=== PATIENT | male | born 1955 | race Caucasian/White ===

== ENCOUNTER 2017-05-25 15:01 | Inpatient (IN) | payer OTHER ==
[2017-05-25] VITALS (8 sets, daily range): BP systolic 157–211; BP diastolic 93–127; PULSE 76–96; RESP 18–22; TEMP 98–98.2; O2SAT 93–99
[~2017-05-25] VITALS: Ht 182.9 cm; Wt 100.5 kg
[~2017-05-25 15:01] MED LIST: ALBU6.7H INH; CHOL50006 PO; PRED20 PO; ROSU40 PO; TAMS0.4C4 PO; TRIBTAB3 PO; ULOR40TA PO; ZETI10TA5 PO; ZOLP10TA3 OR
[2017-05-25] MEDS ORDERED: MORPHINE SULFATE 4 MG/ML INJ IV PUSH ONE (15:15)
[2017-05-25] MEDS ORDERED: METOPROLOL TARTRATE 5 MG/5 ML VIAL IVS SCH (15:15)
[2017-05-25] MEDS ORDERED: ASPIRIN 325 MG TAB PO ONE (15:15)
[2017-05-25] MEDS ORDERED: NITROGLYCERIN-DEXTROSE INJ 250 ML IV ONE (15:15)
[2017-05-25] MEDS ORDERED: SODIUM CHLORIDE 0.9% FLUSH 10 ML FLUSH IVF PRN ×2 (15:15→15:30)
[2017-05-25] MEDS ORDERED: ASPIRIN 81 MG CHEW TAB PO STA (15:18)
[2017-05-25] MEDS ORDERED: HEPARIN SODIUM - IV 10,000 UNITS/10 ML VIAL IV STA (15:18)
[2017-05-25] MEDS ORDERED: SODIUM CHLOR 0.9% 1000 ML INJ 1,000 ML IV ONE (15:18)
[2017-05-25] MEDS ORDERED: NITROGLYCERIN-DEXTROSE INJ 250 ML ONE (15:19)
[2017-05-25] MEDS ORDERED: NITROGLYCERIN 0.4 MG SL 25 TABS/BTL SL ONE (15:20)
[2017-05-25] MEDS ORDERED: HEPARIN SODIUM - IV 10,000 UNITS/10 ML VIAL ONE ×2 (15:20→16:12)
[2017-05-25] MEDS ORDERED: ASPIRIN 81 MG CHEW TAB ONE (15:20)
[2017-05-25] MEDS ORDERED: NITROGLYCERIN-DEXTROSE INJ 250 ML IV SCH (15:30)
[2017-05-25 15:32] LABS: BASOPHIL # 0.1 TH/MM3 (0-0.2); BASOPHIL % 1.3 % (0.0-2.0); EOSINOPHIL # 0.3 TH/MM3 (0-0.4); EOSINOPHIL % 2.6 % (0.0-4.0); HEMO FLAGS DIFF FINAL; LYMPH % 21.9 % (9.0-44.0); LYMPHOCYTE # 2.3 TH/MM3 (1.0-4.8); MEAN CORPUSCULAR HEMOGLOBIN 29.5 PG (27.0-34.0); MEAN CORPUSCULAR HGB CONC 33.5 % (32.0-36.0); MONO % 6.6 % (0.0-8.0); NEUT % 67.6 % (16.0-70.0); PLATELET COUNT 217 TH/MM3 (150-450); RED BLOOD COUNT 5.45 MIL/MM3 (4.50-5.90); RED CELL DISTRIBUTION WIDTH 13.9 % (11.6-17.2); WHITE BLOOD COUNT 10.4 TH/MM3 (4.0-11.0)
[2017-05-25 15:33] LABS: CHLORIDE 107 MEQ/L (98-107); POTASSIUM 4.5 MEQ/L (3.5-5.1); SODIUM (NA) 140 MEQ/L (136-145)
--- NOTE | 2017-05-25 15:34 | PD ---
HPI Chief Complaint: STEMI Alert Time Seen by Provider: 15:10 Travel History International Travel<30 days: No Contact w/Intl Traveler<30days: No Traveled to known affect area: No History of Present Illness HPI 62-year-old male arrives with chest heaviness 03/11 which started about 1-1/2 hours prior to ER arrival at rest. Location is generalized chest. The patient reports pain in the left shoulder. He has been fairly inactive yesterday and today however the [facility] having ambulated about [id number] steps which he states is about normal for him. The patient has hyperlipidemia and hypertension. He has managed diabetes with diet and lifestyle modification. He does not smoke. The patient underwent coronary catheterization in 2004 with a 25% LAD ostial stenosis. 2 nitroglycerin tablets taken prior to ER arrival conferred moderate pain relief, the latter less so. Patient's fryline attendant is Dr. Chalino Gordon. [facility] Past Medical History Arthritis: No Asthma: Yes ( A CHILD) Autoimmune Disease: No Heart Rhythm Problems: No Cancer: Yes (TESTICULAR ) Cardiac Catheterization: Yes (09/06) Cardiovascular Problems: Yes High Cholesterol: Yes Chemotherapy: Yes (LAST TX 03/1984) Chest Pain: No Congestive Heart Failure: No COPD: No Cerebrovascular Accident: No Coronary Artery Disease: Yes (25 % BLOCKAGE CAD) Diabetes: Yes Diminished Hearing: No GERD: Yes Headaches: No Hepatitis: No Hiatal Hernia: No Hypertension: Yes Musculoskeletal: No Neurologic: No Respiratory: No Myocardial Infarction: No Seizures: No Sleep Apnea: No Ulcer: No Past Surgical History Abdominal Surgery: Yes (LEFT ABD QUAD LYMPH NODE REMOVED 1982) AICD: No Cardiac Surgery: No Ear Surgery: No Endocrine Surgery: No Eye Surgery: No Genitourinary Surgery: Yes (LEFT TESTICLE REMOVED 1982 DUE CANCER) Gynecologic Surgery: No Oral Surgery: No Pacemaker: No Thoracic Surgery: No Other Surgery: Yes Social History Alcohol Use: Yes (OCCASIONAL ONCE A WEEK) Tobacco Use: Yes (CIGAR ONCE A MONTH) Substance Use: No Allergies-Medications (Allergen,Severity, Reaction): Coded Allergies: No Known Allergies (Verified , 02/13/14) Reported Meds & Prescriptions Reported Meds & Active Scripts Active Proventil Hfa (Albuterol Sulfate) 6.7 Gm Aero 2 Puff INH Q6H PRN * SHAKE WELL BEFORE USE * Deltasone (Prednisone) 20 Mg Tab 40 Mg PO DAILY Reported Tamsulosin HCl 0.4 Mg Cap PO DAILY Tribenzor (Olmesartan Medoxomil-Amlodipin) 1 Tab Tab PO DAILY Zetia (Ezetimibe) 10 Mg Tab 10 Mg PO DAILY Uloric (Febuxostat) 40 Mg Tab 40 Mg PO DAILY Vitamin D (Cholecalciferol) 5,000 Unit Tab 5,000 Unit PO WEEKLY Zolpidem Tartrate 10 Mg Tab 10 Mg OR HSPRN Crestor (Rosuvastatin Calcium) 40 Mg Tab 40 Mg PO DAILY Review of Systems Except as stated in HPI: all other systems reviewed are Neg General / Constitutional: No: Fever, Chills Cardiovascular: Positive: Chest Pain or Discomfort Physical Exam Narrative GENERAL: 62-year-old male well-nourished well-developed moderate distress secondary to pain and/or anxiety SKIN: Minimal diaphoresis. Warm. HEAD: Atraumatic. Normocephalic. EYES: Pupils equal and round. No scleral icterus. No injection or drainage. ENT: No nasal bleeding or discharge. Mucous membranes pink and moist. NECK: Trachea midline. No JVD. CARDIOVASCULAR: Rate approximately 90. Regular. RESPIRATORY: No accessory muscle use. Clear to auscultation. Breath sounds equal bilaterally. GASTROINTESTINAL: Abdomen soft, non-tender, nondistended. Hepatic and splenic margins not palpable. MUSCULOSKELETAL: No obvious deformities. No clubbing. No cyanosis. No edema. NEUROLOGICAL: Awake and alert. No obvious cranial nerve deficits. Motor grossly within normal limits. Normal speech. PSYCHIATRIC: Appropriate mood and affect; insight and judgment normal. Data Data Last Documented VS Vital Signs Date Time Temp Pulse Resp B/P Pulse Ox O2 Delivery O2 Flow Rate FiO2 05/25/17 15:19 99 Nasal Cannula 2 05/25/17 15:10 98.2 92 18 211/127 Vital signs reviewed Orders Electrocardiogram (05/25/17 15:15) Basic Metabolic Panel (Bmp) (05/25/17 15:15) Ckmb (Isoenzyme) Profile (05/25/17 15:15) Complete Blood Count With Diff (05/25/17 15:15) Magnesium (Mg) (05/25/17 15:15) Prothrombin Time / Inr (Pt) (05/25/17 15:15) Act Partial Throm Time (Ptt) (05/25/17 15:15) Troponin I (05/25/17 15:15) Chest, Single Ap (05/25/17 15:15) Ecg Monitoring (05/25/17 15:15) Bilateral Bp Monitoring (05/25/17 15:15) Iv Access Insert/Monitor (05/25/17 15:15) Oximetry (05/25/17 15:15) Oxygen Administration (05/25/17 15:15) Aspirin (Aspirin) (05/25/17 15:15) Morphine Inj (Morphine Inj) (05/25/17 15:15) Nitroglycerin-Dextrose Inj (Nitroglyceri (05/25/17 15:15) Sodium Chloride 0.9% Flush (Ns Flush) (05/25/17 15:15) Metoprolol Tartrate Inj (Lopressor Inj) (05/25/17 15:15) B-Type Natriuretic Peptide (05/25/17 15:18) Sodium Chlor 0.9% 1000 Ml Inj (Ns 1000 M (05/25/17 15:18) Sodium Chloride 0.9% Flush (Ns Flush) (05/25/17 15:30) Aspirin Chew (Aspirin Chew) (05/25/17 15:18) Nitroglycerin-Dextrose Inj (Nitroglyceri (05/25/17 15:30) Heparin Inj (Heparin Inj) (05/25/17 15:18) Nitroglycerin-Dextrose Inj (Nitroglyceri (05/25/17 15:19) Aspirin Chew (Aspirin Chew) (05/25/17 15:20) Heparin Inj (Heparin Inj) (05/25/17 15:20) Nitroglycerin Sl (Nitrostat Sl) (05/25/17 15:20) Admit Order (Ed Use Only) (05/25/17 15:34) Labs Laboratory Tests Test 05/25/17 15:20 White Blood Count 10.4 TH/MM3 Red Blood Count 5.45 MIL/MM3 Hemoglobin 16.1 GM/DL Hematocrit 48.0 % Mean Corpuscular Volume 88.0 FL Mean Corpuscular Hemoglobin 29.5 PG Mean Corpuscular Hemoglobin 33.5 % Concent Red Cell Distribution Width 13.9 % Platelet Count 217 TH/MM3 Mean Platelet Volume 9.4 FL Neutrophils (%) (Auto) 67.6 % Lymphocytes (%) (Auto) 21.9 % Monocytes (%) (Auto) 6.6 % Eosinophils (%) (Auto) 2.6 % Basophils (%) (Auto) 1.3 % Neutrophils # (Auto) 7.0 TH/MM3 Lymphocytes # (Auto) 2.3 TH/MM3 Monocytes # (Auto) 0.7 TH/MM3 Eosinophils # (Auto) 0.3 TH/MM3 Basophils # (Auto) 0.1 TH/MM3 CBC Comment DIFF FINAL Differential Comment Prothrombin Time 10.4 SEC Prothromb Time International 0.9 RATIO Ratio Activated Partial 28.2 SEC Thromboplast Time Sodium Level 140 MEQ/L Potassium Level 4.5 MEQ/L Chloride Level 107 MEQ/L Carbon Dioxide Level 23.6 MEQ/L Anion Gap 9 MEQ/L Blood Urea Nitrogen 26 MG/DL Creatinine 1.40 MG/DL Estimat Glomerular Filtration 52 ML/MIN Rate Random Glucose 161 MG/DL Calcium Level 8.9 MG/DL Magnesium Level 1.6 MG/DL Total Creatine Kinase 185 U/L MDM Medical Decision Making Medical Screen Exam Complete: Yes Emergency Medical Condition: Yes Medical Record Reviewed: Yes Differential Diagnosis NSTEMI, unstable angina, coronary vasospasm, PE, PTX, aortic dissection, pericarditis, myocarditis, endocarditis, PNA, esophageal disease, aneurysm, musculoskeletal etiologies, anxiety, cocaine/sympathomimetic abuse Narrative Course EKG reveals a sinus rhythm with ST elevations in V1 through V4, possible reciprocal change in lead III, rate approximately 93 EKG is concerning for STEMI morphology 1515 pt seen and evaluated 1520 case d/w Dr Gordon and STEMI alert activated 1522 nitro gtt, metoprolol, morphine, and heparin ordered 1533 EMS at bedside 1540 pt reports pain 5/10, nitro transfusing, morphine/asa/heparin/metoprolol given 1547 EMS in ambulance for departure, pain 5/10 general appearance of patient unchanged Critical Care Narrative Aggregate critical care time was 40 minutes. Time to perform other separately billable procedures was not included in the critical care time. My time did not include minutes spent treating any other patients simultaneously or on activities that did not directly contribute to the patient's treatment. The services I provided to this patient were to treat and/or prevent clinically significant deterioration that could result in: Cardiopulmonary arrest, multiorgan injury/ischemia I provided critical care services requiring my management, as noted below: Chart data review, documentation time, medication orders and management, vital sign assessments/reviewing monitor data, ordering and reviewing lab tests, ordering and interpreting/reviewing x-rays and diagnostic studies, care of the patient and discussion of the patient with the admitting physicians. Diagnosis Primary Impression: STEMI (ST elevation myocardial infarction) Qualified Code: I21.3 - ST elevation myocardial infarction (STEMI), unspecified artery Admitting Information Admitting Physician Requests: Admit Gavino Kumar MD May 25, 2017 15:34
[2017-05-25 15:36] LABS: ANION GAP 9 MEQ/L (5-15); BICARBONATE 23.6 MEQ/L (21.0-32.0); MAGNESIUM 1.6 MG/DL (1.5-2.5)
[2017-05-25 15:37] LABS: BLOOD UREA NITROGEN 26 MG/DL (7-18)
[2017-05-25 15:38] LABS: APTT (PATIENT) 28.2 SEC (24.3-30.1); INTERNATIONAL NORMALIZED RATIO 0.9 RATIO; PROTHROMBIN TIME - PATIENT 10.4 SEC (9.8-11.6)
--- NOTE | 2017-05-25 15:38 | RADRPT ---
EXAM DATE/TIME: 05/25/2017 15:17 [place] COMPARISON: CHEST SINGLE AP, February 13, 2014, 10:14. INDICATIONS : Stemi alert. MEDICAL HISTORY : Hypertension. Coronary artery disease. SURGICAL HISTORY : Cardiac catheterization. ENCOUNTER: Initial ACUITY: 1 day PAIN SCORE: 8/10 LOCATION: Left chest FINDINGS: A single view of the chest demonstrates the lungs to be symmetrically aerated without evidence of mas s, infiltrate or effusion. The cardiomediastinal contours are unremarkable. Osseous structures are intact. CONCLUSION: No acute disease. Abhijit Escudero Jr., MD on May 25, 2017 at 15:36 Board Certified Radiologist. This report was verified electronically.
[2017-05-25 15:40] LABS: GLOMERULAR FILTRATION RATE 52 ML/MIN (>89)
[2017-05-25 15:43] LABS: CREATINE KINASE 185 U/L (39-308)
[2017-05-25 15:55] LABS: CKMB 2.8 NG/ML (0.5-3.6)
[2017-05-25] MEDS ORDERED: IOHEXOL 350 MG/ML 100 ML BTL (for Cath Lab) OTHER ONE (16:00)
[2017-05-25] MEDS ORDERED: IOHEXOL 350 MG/ML 50 ML BTL (for Cath Lab) OTHER ONE (16:00)
[2017-05-25] MEDS ORDERED: HEPARIN-NS/PF INJ 500 ML ONE (16:11)
[2017-05-25] MEDS ORDERED: MIDAZOLAM HCL 2 MG/2 ML VIAL ONE (16:12)
[2017-05-25] MEDS ORDERED: NITROGLYCERIN INJ 5 ML ONE (16:12)
[2017-05-25] MEDS ORDERED: TICAGRELOR 90 MG TAB PO ONE (16:59)
--- NOTE | 2017-05-25 17:36 | CATHPROC ---
[facility] HIS Report Study Information Study Number Admission Scheduled Start Study Start [id number] May 25 2017 3:01PM 05/25/2017 May 25 2017 4:07PM [place] Service Cardiac Catheterization Admit Source Facility Department Transfer in from another acute care facility [facility] Physician and Clinical Staff Initial Rodrigue Huffman Conference Planner Naye Lambert,[place] Conference PlannerDorothy Bowers RN Other Alex Taylor RCIS(BS) Recorder Gila Pierre,RT(R) Scrub Greg Moran RT(R) Procedures Performed Procedure Location (Site) Vessel Name Coronary Angiograms LCA Left Coronary Coronary Angiograms RCA Right Coronary Drug Eluting Inflatio LAD Mid Left Coronary L Heart Cath PTCA LAD Mid Left Coronary PTCA ADD ON'S Wire insertion Fem Art (right) Femoral Art Equipment Time Brass Wind Instrument Maker Description Size Mfg Part Number Used/Scraped WIRE, BALANCE MIDDLEWEIGHT [id number] 16:35 [employer] 190CM Used 190CM (KRISHNA) *[id number] TRANSDUCER, TRUWAVE [id number] 16:24 GARCÍA RAMEY * Used W/STOCKCOCK *[id number] 16:42 [employer] BALLOON, 2.0 12MM EMERGE MR 2.0 12MM Used *[id number]- INTRODUCER SET, 16:12 [employer] FR 5 [id number] Used MICROPUNCTURE, STIFFENED *[id number] *[id number] *[id number] 16:24 [employer] PACK, CCL CUSTOM * Used *[id number] BALLOON, 2.25 X 8MM NC [id number] 16:52 [employer] 8MM Used EUPHORA *[id number] STENT, 2.25 12 RESOLUTE [id number] 16:46 [employer]ONIC 2.25 12 Used INTEGRITY RX *[id number] 16:29 [employer]/AVE EBU 3.5 Z2 GUIDE CATHETER FR 6 Used *[id number] 16:30 [employer] MEDICAL 30 BRAYDON INDEFLATOR Used *[id number] 16:24 [employer] MEDICAL SHEATH, FR5.5 PRELUDE 11CM FR 5 [id number] 16:25 [employer] MEDICAL SHEATH, FR6.5 PRELUDE 11CM FR 6.5 [id number] Used *[id number] 16:24 [employer] MEDICAL WIRE, 3MMJ .035 180CM 180CM Used *[id number] 16:24 [employer] MANIFOLD, 4 PORT * Used *[id number] 16:24 [employer] OMNIPAQUE, 350 MG, 150ML 150ML [id number] Used [id number] 16:24 [employer] BL[employer]ET,WARM AIR CCL * Used *[id number] Equipment Model, Serial, Lot Number and Expiration Data Description Model Number Serial Number Lot Number Expiration Date BALLOON, 2.0 12MM EMERGE MR [id number] 10-01-2019 SHEATH, FR6.5 PRELUDE 11CM [id number] 03-01-2020 STENT, 2.25 12 RESOLUTE [id number] 01-19-2019 INTEGRITY RX History: Current Medications Medication Dosage/Unit Route Frequency Last Date/Time Taken STALIN [place] History: Risk Factors Family History of Hypertension Dyslipidemia Previous [place] Previous Heart Failure Premature CAD Yes Yes No Yes No Cerebrovascular Peripheral Artery Chronic Lung On Dialysis Diabetes Diabetes Therapy Disease Disease Disease History: Symptoms/Diagnosis Selection Items Chest pain History: Stress Tests Stress or Imaging Studies Performed No Labs Creatinine (mg/dl) 0.50-1.30 1.4 Medication Medication Total Dose (Bolus/Oral) Medication Total Dosage/Unit 1% XYLOCAINE 20 mL BRILINTA 180 mg FENTANYL 25 mcg HEPARIN 8000 units VERSED 0.5 mg Medications (Bolus/Oral) Medication Time Given Dosage/Unit Administered By Reason FENTANYL 05/25/2017 4:23:03 PM 25 mcg Dorothy Ureña 25 mcg FENTANYL given in lab by Dorothy Ureña, [place] in Right Antecubital via Peripheral IV. VERSED 05/25/2017 4:23:25 PM 0.5 mg Dorothy Ureña 0.5 mg VERSED given in lab by Dorothy Ureña, BASILIA via Peripheral IV. 1% XYLOCAINE 05/25/2017 4:23:34 PM 20 mL Rodrigue Kumar 20 mL 1% XYLOCAINE given in lab by Rodrigue Kumar in Right Groin via Subcutaneous. HEPARIN 05/25/2017 4:36:00 PM 7000 units Dorothy Ureña 7000 units HEPARIN given in lab by Dorothy Ureña, BASILIA via Peripheral IV. HEPARIN 05/25/2017 4:47:00 PM 1000 units Dorothy Ureña 1000 units HEPARIN given in lab by Dorothy Ureña, RN via Peripheral IV. BRILINTA 05/25/2017 4:59:00 PM 180 mg Dorothy Ureña 180 mg BRILINTA given in lab by Dorothy Ureña, RN via Peripheral IV. Ordered by Rodrigue Kumar. Medication (Drip) Medication Time Given Dosage/Unit Concentration/Unit Diluent (ml) Solution IV Solutions 05/25/2017 4:13:25 PM 0 mL (IV) 500 NaCl .9 Patient arrived on IV Solutions in Right Antecubital via Peripheral IV. Pump/Drip Flow = 20 ml/hr usi ng NaCl .9. NITROGLYCERIN DRIP 05/25/2017 4:12:53 PM 20 mcg/min 50 mg 250 D5W Patient arrived on 20 mcg/min NITROGLYCERIN DRIP in Right Wrist via Peripheral IV. Pump/Drip Flow = 6 ml/hr using D5W with a concentration of 50 mg in 250 ml. Initial Case Assessment Cardiovascular HR Rhythm NIBP Chest Pain 76 REG 166/110 2 Edema Present Skin color Skin None Normal Warm Neurological State Oriented to time-place- Alert Moves all extremities person Respiration - General Respiration Rate SpO2 (%) O2 (lpm) (B/min) 14 97 2 Final Case Assessment Cardiovascular HR Rhythm NIBP Chest Pain 76 REG 166/110 2 Edema Present Skin color Skin None Normal Warm Neurological State Oriented to time-place- Alert Moves all extremities person Respiration - General Respiration Rate SpO2 (%) O2 (lpm) (B/min) 14 97 2 Chronological Log Time Study Chronological Log 16::24 Patient arrived via evac 16:07:31 Patient Name, D.O.B, / Armband Verified By R.N. 16:07:32 Consent signed by the physician and the patient and verified by the [facility] staff. 16:07:32 Pre-op and post- op instructions given; patient acknowledges understanding of instruction s. 16:07:33 Verbal Stimulation=2 Physical Stimulation=2 Airway=2 Respiration=2 TOTAL=8. (0=absent, 1= limited, 2=present) 16:07:35 Patient has been NPO for More than 6Hrs. Vitals capture started with the following parameters, Patient=Adult, Interval=5 min, Initial Jvquakcr=348 mmHg, 16:09:54 Deflation Rate=5 mmHg 16:10:36 MD arrived. 16:11:15 HR=77 bpm, QBIW=765/110 mmhg, SpO2=99.0 %, Resp=14 B/min, Pain=2, Romeo=10, Dominguez=2 Skin Breakdown-NONE 16:12:34 16:12:42 A # 20 IV was noted in the Wrist (right). Grade = 0 Patient arrived on 20 mcg/min NITROGLYCERIN DRIP in Right Wrist via Peripheral IV. Pump/Drip Fl ow = 6 ml/hr using 16:12:53 D5W with a concentration of 50 mg in 250 ml. 16:13:17 A # 20 IV was noted in the Antecubital (right). Grade = 0 16:13:25 Patient arrived on IV Solutions in Right Antecubital via Peripheral IV. Pump/Drip Flow = 20 ml/hr using NaCl .9. 16:13:59 History and physical on the chart or being dictated. Assessment: Initial Case, HR=76 BPM, Rhythm=REG, RKVZ=734/110 mmhg, Chest Pain=2, Edema=None, Color=Normal, Skin = Warm 16:14:00 Neurological: State=Alert, Ox3, ECKERT Respiration: Resp=14 B/min, SpO2=97 %, O2=2 lpm 16:14:28 Bilateral groins prepped with 2% chlorhexidine, and with a 3 min. waiting time. 16:14:32 Reference ECG taken 16:15:35 HR=75 bpm, BGXW=765/105 mmhg, SpO2=98.0 %, Resp=16 B/min, Pain=2, Romeo=10, Dominguez=2 16:20:38 HR=82 bpm, XTAD=247/111 mmhg, SpO2=98.0 %, Resp=23 B/min, Pain=2, Romeo=10, Dominguez=2 16:21:08 Pressure channel 1 zeroed. Time Out. Correct patient, correct procedure,correct physician, ,power injectorloaded or not lo aded with contrast with 16:21:59 surgical team present. Time Out Concurred by MD, individual staff and TRAIN PLANNER in procedure 16:22:27 Case Start 16:22:30 PT RECEIVED 5000 HEPARIN IN ER 16:22:54 Verbal Stimulation=2 Physical Stimulation=2 Airway=2 Respiration=2 TOTAL=8. (0=absent, 1=li mited, 2=present) 16:23:03 25 mcg FENTANYL given in lab by Dorothy Ureña, RN in Right Antecubital via Peripheral IV. 16:23:25 0.5 mg VERSED given in lab by Dorothy Ureña, RN via Peripheral IV. 16:23:34 20 mL 1% XYLOCAINE given in lab by Rodrigue Kumar in Right Groin via Subcutaneous. 16:24:08 Access site was Right Femoral Artery. 16:24:13 A wire was inserted via Fem Art (right). 16:24:15 A SHEATH, FR6.5 PRELUDE 11CM FR 6.5 was advanced into the Fem Art (right) using the Percuta neous technique. 16:26:24 HR=80 bpm, TZNJ=209/119 mmhg, SpO2=96.0 %, Resp=14 B/min, Pain=2, Romeo=10, Dominguez=2 Recorded Pressure: Ao, HR=78, Condition=Condition 1 16:26:44 (Aorta) Ao 176/98/128 16:27:28 An injection in the Fem Art (right) was made through the SHEATH, FR6.5 PRELUDE 11CM FR 6.5. A JR 4.0 INFINITI CATHETER FR 6 was advanced over a wire. OMNIPAQUE, 350 MG, 150ML 150ML was us ed for 16:27:37 injections. Recorded Pressure: LV, HR=80, Condition=Condition 1 16:28:14 (Left Ventricle) LV 173/3/13 Recorded Pressure: LV, Ao, HR=77, Condition=Condition 1 16:28:26 (Left Ventricle) LV 171/2/13, (Aorta) Ao 160/99/127 16:29:18 The RCA was injected and visualized at various angles. OMNIPAQUE, 350 MG, 150ML 150ML used . 16:30:17 OMNIPAQUE, 350 MG, 150ML 150ML and 30 BRAYDON INDEFLATOR added. 16:30:38 HR=80 bpm, BUAA=845/114 mmhg, SpO2=98.0 %, Resp=13 B/min, Pain=2, Romeo=10, Dominguez=2 16:31:35 Catheter was removed Recorded Pressure: Ao, HR=81, Condition=Condition 1 16:31:49 (Aorta) Ao 166/102/130 A EBU 3.5 Z2 GUIDE CATHETER FR 6 was advanced over a wire. OMNIPAQUE, 350 MG, 150ML 150ML was u sed for 16:32:02 injections. 16:33:51 The LCA was injected and visualized at various angles. OMNIPAQUE, 350 MG, 150ML 150ML used . 16:35:37 HR=81 bpm, AJGD=486/111 mmhg, SpO2=98.0 %, Resp=19 B/min, Pain=2, Romeo=10, Dominguez=2 16:36:00 7000 units HEPARIN given in lab by Dorothy Ureña, RN via Peripheral IV. 16:36:49 A WIRE, BALANCE MIDDLEWEIGHT 190CM (KRISHNA) 190CM was inserted via Fem Art (right). 16:40:39 HR=76 bpm, ZWGJ=488/102 mmhg, SpO2=99.0 %, Resp=23 B/min, Pain=2, Romeo=10, Dominguez=2 A BALLOON, 2.0 12MM EMERGE MR 2.0 12MM was inserted over WIRE, BALANCE MIDDLEWEIGHT 190CM (KRISHNA ) 16:42:54 190CM via the LAD Mid. A BALLOON, 2.0 12MM EMERGE MR 2.0 12MM over a WIRE, BALANCE MIDDLEWEIGHT 190CM (KRISHNA) 190CM in the 16:43:22 LAD Mid was inflated using a 30 BRAYDON INDEFLATOR at 8 braydon for 25 sec. 16:43:49 Activated Clotting Time Drawn A BALLOON, 2.0 12MM EMERGE MR 2.0 12MM over a WIRE, BALANCE MIDDLEWEIGHT 190CM (KRISHNA) 190CM in the 16:43:56 LAD Mid was inflated using a 30 BRAYDON INDEFLATOR at 8 braydon for 16 sec. 16:44:58 Balloon Removed. 16:45:38 HR=76 bpm, CWKP=448/105 mmhg, SpO2=99.0 %, Resp=22 B/min, Pain=2, Romeo=10, Dominguez=2 A STENT, 2.25 12 RESOLUTE INTEGRITY RX 2.25 12 was advanced through a EBU 3.5 Z2 GUIDE CATHETER FR 6 over 16:46:21 a WIRE, BALANCE MIDDLEWEIGHT 190CM (KRISHNA) 190CM. 16:47:00 1000 units HEPARIN given in lab by Dorothy Ureña RN via Peripheral IV. 16:47:28 ACT (Normal Range 90-180) = 277 A STENT, 2.25 12 RESOLUTE INTEGRITY RX 2.25 12 was deployed using a 30 BRAYDON INDEFLATOR at 10 bryadon ospheres 16:48:50 for 30 seconds in the LAD Mid. 16:50:22 Delivery device removed 16:50:39 HR=77 bpm, ZBRB=796/106 mmhg, SpO2=98.0 %, Resp=24 B/min, Pain=2, Romeo=10, Dominguez=2 16:51:00 The LCA was injected and visualized at various angles. OMNIPAQUE, 350 MG, 150ML 150ML used . A BALLOON, 2.25 X 8MM NC EUPHORA 8MM was inserted over WIRE, BALANCE MIDDLEWEIGHT 190CM (KRISHNA) 190CM 16:53:20 via the LAD Mid. A BALLOON, 2.25 X 8MM NC EUPHORA 8MM over a WIRE, BALANCE MIDDLEWEIGHT 190CM (KRISHNA) 190CM in th e LAD 16:53:38 Mid was inflated using a 30 BRAYDON INDEFLATOR at 20 braydon for 29 sec. 16:55:38 HR=74 bpm, EJKQ=274/104 mmhg, SpO2=99.0 %, Resp=17 B/min, Pain=2, Romeo=10, Dominguez=2 16:56:02 Balloon Removed. 16:56:50 The LCA was injected and visualized at various angles. OMNIPAQUE, 350 MG, 150ML 150ML used . 16:59:00 180 mg BRILINTA given in lab by Dorothy Ureña, RN via Peripheral IV. Ordered by Rodrigue Kumar. 16:59:15 The LCA was injected and visualized at various angles. OMNIPAQUE, 350 MG, 150ML 150ML used . 17:01:24 HR=74 bpm, RUFE=471/109 mmhg, SpO2=99.0 %, Resp=11 B/min, Pain=2, Romeo=10, Dominguez=2 17:02:00 Case End 17:05:42 HR=76 bpm, GMVN=153/97 mmhg, SpO2=98.0 %, Resp=16 B/min, Pain=2, Romeo=10, Dominguez=2 Assessment: Final Case, HR=76 BPM, Rhythm=REG, NNUC=692/110 mmhg, Chest Pain=2, Edema=None, Color=Normal, Skin = Warm 17:05:42 Neurological: State=Alert, Ox3, ECKERT Respiration: Resp=14 B/min, SpO2=97 %, O2=2 lpm 17:05:53 In the Fem Art (right) the SHEATH, FR6.5 PRELUDE 11CM FR 6.[address] by Rodrigue Allison. 17:06:02 Sterile dressing applied to site 17:06:03 No case complications noted. 17:06:04 Cine recording checked. 17:06:09 Bedside Report will be given. 17:06:09 Implantable Device card placed in patient's chart. 17:06:11 Contrast Scanned 17:06:13 A Left Heart Cath was performed. 17:06:14 Patient moved to stretcher 17:10:41 HR=76 bpm, LMXM=393/108 mmhg, Resp=25 B/min, Pain=2, Romeo=10, Dominguez=2 17:15:24 Vitals capture stopped. End Study - Contrast Media Used In Study Contrast Total Opened (mL) Total Used (mL) Total Wasted (mL) Omnipaque 105 105 0 End Study - Maximum Contrast Load Max Contrast Load (mL) 374.7 End Study - Radiation Exposure Fluoro Time (minutes) 6.8 End Study - Patient Disposition Complications Transferred To Interventional Outcome No Regular Bed successful
[2017-05-25] MEDS ORDERED: MORPHINE SULFATE 4 MG/ML INJ IV PUSH PRN (18:45)
[2017-05-25] MEDS ORDERED: ACETAMINOPHEN 325 MG TAB PO PRN (18:45)
[2017-05-25] MEDS ORDERED: ATROPINE SULFATE 1 MG/ML VIAL IV PRN (18:45)
[2017-05-25] MEDS ORDERED: ONDANSETRON HCL 4 MG/2 ML VIAL IV PRN (18:45)
[2017-05-25] MEDS ORDERED: ALBUTEROL SULFATE 90 MCG/ACT HFA 8 GM INHALER INH PRN (18:45)
[2017-05-25] MEDS ORDERED: oxyCODONE/ACETAMINOPHEN 10 MG/325 MG TAB PO PRN (18:45)
[2017-05-25] MEDS ORDERED: oxyCODONE/ACETAMINOPHEN 5 MG/325 MG TAB PO PRN (18:45)
[2017-05-25] MEDS ORDERED: MISC INFORMATION XX ONE (18:45)
[2017-05-25] MEDS ORDERED: SODIUM CHLOR 0.9% 250 ML INJ 250 ML IV PRN (18:45)
[2017-05-25] MEDS ORDERED: hydrALAZINE HCL 20 MG/ML VIAL IV PUSH ONE (19:15)
[2017-05-25] MEDS: TICAGRELOR 90 MG TAB PO SCH (20:59)
[2017-05-25] MEDS: METOPROLOL TARTRATE 25 MG TAB PO SCH (20:59)
[2017-05-25] MEDS: ATORVASTATIN 40 MG TAB PO SCH (20:59)
--- NOTE | 2017-05-25 21:12 | MH ---
cc: RODRIGUE HARTMAN DO DATE OF ADMISSION 05/25/2017 REASON FOR ADMISSION Acute ST elevation myocardial infarction. HISTORY OF PRESENT ILLNESS Otf Roberts is a pleasant 62-year-old male who arrived to [facility] Emergency Room in [place] on May 25, 2017 due to chest pain. He states that the chest pain started about an hour to an hour and a half prior to arriving to the ER. Chest pain was in the center of the chest and radiated to his left shoulder. He has been fairly inactive over the past few days but before that was in [place] and walked around all day without problem. Upon arrival the patient had an EKG done which showed extensive ST elevations in the anterior leads. The patient was quite hypertensive and he was given two nitro sublingual tablets, started on a nitro sublingual drip and given heparin. The patient sees my partner, Dr. Chalino Gordon and so we were called and a STEMI alert was called. PAST MEDICAL HISTORY 1. Coronary artery disease. 2. Asthma as a child. 3. Testicular cancer. 4. Hyperlipidemia. 5. Hypertension. 6. Diabetes mellitus for which the patient attempts to control without medications. 7. Gastroesophageal reflux disease. PAST SURGICAL HISTORY 1. Cardiac catheterization (2004) where he was found to have a 25% lesion in proximal LAD, otherwise no significant disease. 2. Left abdominal surgery for lymph node removal (1982). 3. Left testicle removed (1982 due to cancer). ALLERGIES NO KNOWN DRUG ALLERGIES. MEDICATIONS 1. Flomax 0.4 mg daily. 2. Tribenzor one tablet daily. 3. Zetia 10 milligrams daily. 4. Uloric 40 milligrams daily. 5. Vitamin D 5000 units weekly. 6. Ambien 10 mg as needed for sleep. 7. Crestor 40 mg daily. FAMILY HISTORY Denies premature coronary artery disease or sudden cardiac within the family. SOCIAL HISTORY The patient drinks rarely. He continues to smoke a cigar every 2-4 weeks. Denies drug abuse. REVIEW OF SYSTEMS 14-systems were reviewed including osteopathic, pertinent positives and negatives as above, otherwise negative. PHYSICAL EXAMINATION VITAL SIGNS: Temperature 98.2, heart rate 92, blood pressure 211/127, respirations 18, pulse ox 96% on room air. GENERAL: In general the patient appears in mild distress, alert awake and oriented x3. HEENT: Extraocular muscles intact. Mucous membranes moist. NECK: Supple. No JVD at 45 degrees. No carotid bruits heard bilaterally. Carotid upstroke is brisk in nature. CARDIOVASCULAR: Heart is regular rate and rhythm. Positive first and second heart sounds with no noted murmurs, gallops or rubs. PMI is nondisplaced. LUNGS: Clear to auscultation bilaterally. No wheezes, rales or rhonchi. ABDOMEN: Soft, nontender, nondistended. No organomegaly noted. EXTREMITIES: Show no clubbing, cyanosis or edema. Femoral and distal pulses intact bilaterally. NEUROLOGIC: No focal deficits. SKIN: Warm, dry and intact. OSTEOPATHIC: No kyphoscoliosis, lordosis or paraspinal tender points. LABORATORY FINDINGS Hemoglobin 16.1, hematocrit 48.0, platelets 217. Potassium 4.5, BUN 26, creatinine 1.4. Electrocardiogram (May 25, 2017 at 15:07) sinus rhythm, left anterior fascicular block, extensive ST changes anterior septally concerning for an acute ST elevation myocardial infarction. IMPRESSION 1. Acute anterior septal ST-elevation myocardial infarction. 2. History of coronary artery disease by cardiac catheterization. 3. Accelerated hypertension. 4. History of hypertension. 5. History of hyperlipidemia. 6. History of diabetes mellitus for which he tries to control with his diet. 7. Tobacco abuse. RECOMMENDATIONS 1. Mr. Roberts is presenting with chest pain concerning for coronary insufficiency and an EKG which is concerning for an ST-elevation myocardial infarction. Because of this he will be transferred from [place] to [facility] for cardiac catheterization emergently. 2. Risks, benefits and alternatives were explained to him and he consents as such. 3. We will check a 2-D echo to look at his overall left ventricular function, cardiac structure and possible valvopathies. 4. I spoke to him for greater than 3 minutes about tobacco cessation. 5. As far as his diabetes goes, his blood sugar on arrival was high although this might be in acute reactant due to his overall illness. 6. Further recommendations will be made after coronary visualization. Thank you for allowing me to see Otf Roberts. If there are any questions please do not hesitate to call. Rodrigue Hartman DO VGP/KK /6:38 PM /8:58 PM
[2017-05-25] MEDS: hydrALAZINE HCL 20 MG/ML VIAL IV PUSH PRN (22:00)
[2017-05-26] VITALS (25 sets, daily range): BP systolic 155–174; BP diastolic 92–105; PULSE 77–92; RESP 14–20; TEMP 97.5–98.3; O2SAT 95–98
[2017-05-26 07:02] LABS: AUTOMATED NEUTROPHIL # 6.4 TH/MM3 (1.8-7.7); BASOPHIL # 0.1 TH/MM3 (0-0.2); BASOPHIL % 0.6 % (0.0-2.0); EOSINOPHIL # 0.3 TH/MM3 (0-0.4); EOSINOPHIL % 3.3 % (0.0-4.0); HEMATOCRIT 44.5 % (39.0-51.0); HEMO FLAGS DIFF FINAL; LYMPH % 25.1 % (9.0-44.0); LYMPHOCYTE # 2.6 TH/MM3 (1.0-4.8); MEAN CELL VOLUME 88.6 FL (80.0-100.0); MONO % 8.2 % (0.0-8.0); NEUT % 62.8 % (16.0-70.0); PLATELET COUNT 185 TH/MM3 (150-450); RED BLOOD COUNT 5.02 MIL/MM3 (4.50-5.90); RED CELL DISTRIBUTION WIDTH 15.1 % (11.6-17.2); WHITE BLOOD COUNT 10.2 TH/MM3 (4.0-11.0)
--- NOTE | 2017-05-26 07:17 | PD.CONS ---
History of Present Illness Service Hospitalist Consult Requested By Cardiology Dr. Gordon Primary Care Physician No Primary Care Physician Diagnoses: History of Present Illness This is a 62-year-old male with a medical history significant for hypertension, hyperlipidemia, and diabetes who presented to [place] with a chief complaint of chest pain. The patient's cardiac history significant for heart catheterization in 2004 which showed 25% stenosis of the LAD. The patient's sharepoint manager is Dr. Gordon. EKG in ER significant for ST elevations in V1 through V4. This STEMI alert was called. The patient was transferred to [facility] for urgent cardiac catheterization. Currently the patient is laying flat in bed. He denies CP, SOB, or abdominal pain. No other complaints or concerns this am. Review of Systems Constitutional: DENIES: Fever Respiratory: DENIES: Shortness of breath Cardiovascular: DENIES: Chest pain, Palpitations Gastrointestinal: DENIES: Abdominal pain, Nausea Psychiatric: DENIES: Mood changes Past Family Social History Allergies: Coded Allergies: No Known Allergies (Verified , 02/13/14) Past Medical History Hypertension Hyperlipidemia Diabetes Coronary artery disease BPH Gout hx Testicular CA 88 Past Surgical History Deviated septum repair Active Ordered Medications Tamsulosin HCl 0.4 Mg Cap PO DAILY Tribenzor (Olmesartan Medoxomil-Amlodipin) 1 Tab Tab PO DAILY Zetia (Ezetimibe) 10 Mg Tab 10 Mg PO DAILY Uloric (Febuxostat) 40 Mg Tab 40 Mg PO DAILY Vitamin D (Cholecalciferol) 5,000 Unit Tab 5,000 Unit PO WEEKLY Zolpidem Tartrate 10 Mg Tab 10 Mg OR HSPRN Crestor (Rosuvastatin Calcium) 40 Mg Tab 40 Mg PO DAILY Family History father from bone/lung CA mother with DM, HTN, HLD, living Social History alcohol socially denies ilicit drugs hx tobacco use over 30 years ago Physical Exam Vital Signs Vital Signs Date Time Temp Pulse Resp B/P Pulse Ox O2 Delivery O2 Flow Rate FiO2 05/26/17 06:00 80 05/26/17 05:00 78 05/26/17 04:00 80 05/26/17 03:00 98.0 82 20 162/92 97 05/26/17 03:00 84 05/26/17 02:00 88 05/26/17 01:00 84 05/26/17 00:00 92 05/25/17 23:15 18 05/25/17 23:00 98.2 94 18 157/93 97 05/25/17 23:00 96 05/25/17 22:00 86 05/25/17 21:00 84 05/25/17 20:00 86 05/25/17 19:00 86 05/25/17 19:00 98.0 76 22 171/115 97 05/25/17 15:28 88 18 206/115 99 Nasal Cannula 2 05/25/17 15:19 99 Nasal Cannula 2 05/25/17 15:15 90 18 205/125 98 Nasal Cannula 2 05/25/17 15:15 93 Nasal Cannula 05/25/17 15:10 98.2 92 18 211/127 96 05/25/17 15:02 92 96 Room Air Physical Exam GENERAL: This is a well-nourished, well-developed patient, in no apparent distress. SKIN: No rashes, ecchymoses or lesions. Cool and dry. HEAD: Atraumatic. Normocephalic. No temporal or scalp tenderness. EYES: Pupils equal round and reactive. Extraocular motions intact. No scleral icterus. No injection or drainage. ENT: Nose without bleeding, purulent drainage or septal hematoma. Throat without erythema, tonsillar hypertrophy or exudate. Uvula midline. Airway patent. NECK: Trachea midline. No JVD or lymphadenopathy. Supple, nontender, no meningeal signs. CARDIOVASCULAR: Regular rate and rhythm without murmurs, gallops, or rubs. RESPIRATORY: Clear to auscultation. Breath sounds equal bilaterally. No wheezes , rales, or rhonchi. GASTROINTESTINAL: Abdomen soft, non-tender, nondistended. No hepato-splenomegaly , or palpable masses. No guarding. MUSCULOSKELETAL: Extremities without clubbing, cyanosis, or edema. No joint tenderness, effusion, or edema noted. No calf tenderness. NEUROLOGICAL: Awake and alert. Cranial nerves II through XII intact. Motor and sensory grossly within normal limits. Five out of 5 muscle strength in all muscle groups. Normal speech. Laboratory Laboratory Tests Test 05/25/17 05/26/17 15:20 05:50 White Blood Count 10.4 10.2 Red Blood Count 5.45 5.02 Hemoglobin 16.1 15.6 Hematocrit 48.0 44.5 Mean Corpuscular Volume 88.0 88.6 Mean Corpuscular Hemoglobin 29.5 31.0 Mean Corpuscular Hemoglobin 33.5 35.0 Concent Red Cell Distribution Width 13.9 15.1 Platelet Count 217 185 Mean Platelet Volume 9.4 9.6 Neutrophils (%) (Auto) 67.6 62.8 Lymphocytes (%) (Auto) 21.9 25.1 Monocytes (%) (Auto) 6.6 8.2 Eosinophils (%) (Auto) 2.6 3.3 Basophils (%) (Auto) 1.3 0.6 Neutrophils # (Auto) 7.0 6.4 Lymphocytes # (Auto) 2.3 2.6 Monocytes # (Auto) 0.7 0.8 Eosinophils # (Auto) 0.3 0.3 Basophils # (Auto) 0.1 0.1 CBC Comment DIFF FINAL DIFF FINAL Differential Comment Prothrombin Time 10.4 Prothromb Time International 0.9 Ratio Activated Partial 28.2 Thromboplast Time Sodium Level 140 Potassium Level 4.5 Chloride Level 107 Carbon Dioxide Level 23.6 Anion Gap 9 Blood Urea Nitrogen 26 Creatinine 1.40 Estimat Glomerular Filtration 52 Rate Random Glucose 161 Calcium Level 8.9 Magnesium Level 1.6 Total Creatine Kinase 185 Creatine Kinase MB 2.8 Troponin I 0.02 B-Type Natriuretic Peptide 58 Result Diagram: 05/26/17 0550 05/25/17 1520 Imaging Last Impressions Chest X-Ray 05/25/17 1515 Signed Impressions: Service Date/Time: Thursday, May 25, 2017 15:17 - CONCLUSION: No acute disease. Abhijit Escudero Jr., MD Assessment and Plan Problem List: (1) STEMI (ST elevation myocardial infarction) Status: Acute (2) Gout Status: Acute (3) HTN (hypertension) Status: Acute (4) HLD (hyperlipidemia) Status: Acute (5) BPH (benign prostatic hyperplasia) Status: Acute Assessment and Plan 62-year-old male presented with chest pain, STEMI alert was called, now status post STEMI - s/p heart cath 05/[address] Gordon, report is pending - patient was started on Brilinta 90 mg BID - further mgmt per cards - 2 D ECHO pending HTN - appears patients home medication is Tribenzor ( ARB) - metoprolol 12.5 mg BID - hydralazine prn HLD - was on crestor & zetoa, currently on atorvastatin Gout - cont home Uloric daily BPH - cont tamsulosin DM - diet controlled - A1C ordered - heart healthy diabetic diet Hypokalemia - replated, will recheck tomorrow DVT prophy - heparing 5,000 units q8 Discussed Condition With Patient Discharge Planning Pending cardiac clearance Problem Qualifiers (1) STEMI (ST elevation myocardial infarction): Qualified Code: I21.3 - ST elevation myocardial infarction (STEMI), unspecified artery Gabbie García MD May 26, 2017 07:17
[2017-05-26 07:19] LABS: POTASSIUM 3.3 MEQ/L (3.5-5.1)
[2017-05-26 07:23] LABS: HDL CHOLESTEROL 27.4 MG/DL (40.0-60.0)
--- NOTE | 2017-05-26 08:43 | MA ---
cc: RODRIGUE HARTMAN DO DATE 05/25/2017 PROCEDURE Left heart catheterization, coronary angiogram, anterior septal STEMI status post Resolute drug-eluting stent (2.25 x 12), moderate sedation 40 minutes. PREPROCEDURE DIAGNOSIS Acute anterior septal STEMI, history of coronary artery disease, chest pain. POSTPROCEDURE DIAGNOSIS Acute anterior septal STEMI status post Resolute drug-eluting stent (2.25 x 12). MEDICATIONS 1. Fentanyl 25 mcg 2. Versed 0.5 mg 3. Heparin 8000 units 4. Brilinta 180 mg CONTRAST 100 cc FLUOROSCOPY 6.8 minutes ANESTHESIA Moderate sedation 40 minutes ESTIMATED BLOOD LOSS 10 CC PROCEDURAL SUMMARY Otf Roberts is a pleasant 62-year-old male who presented to [facility] emergency room in [place] due to chest pain. He was found to have ST elevations in the anterior septal region and because of this transferred emergently to [facility] for cardiac catheterization. The risks, benefits and alternatives were explained to him and he consented as such. He was brought to the lab and prepped in the usual sterile fashion. The right femoral artery was accessed using a modified Seldinger technique and placement of a 6-Chinese sheath. Angiogram shows adequate flow throughout the right femoral with a low takeoff of his inferior epigastric artery. A JR-4 was advanced over a J-wire to the ascending aorta and across the aortic valve for measurement of left ventricular end-diastolic pressure. This was pulled back across the aortic valve showing no significant gradient of aortic stenosis. JR-4 was used for selective angiography of the right coronary system. JR-4 was then exchanged for an EBU 3.5 guide which was used for selective angiography of the left coronary system. As there was significant disease in the mid LAD of 99%, additional heparin was given as an anticoagulant. A BMW wire was advanced into the distal LAD. A Compliant balloon (2 x 12) was advanced distal to the takeoff of the major diagonal and inflated. This was then exchanged for a Resolute drug-eluting stent (2.25 x 12) which was placed distal to the takeoff of the major diagonal to cover the lesion. This was inflated and removed. The noncompliant balloon (2.25 x 8) was then advanced and inflated over the length of the stent. The wire was pulled back and angiogram shows a well opposed stent with no dissections or perforations. There is an extremely small 1 mm diagonal which comes off at the stent which had slow flow to start and overall has MICHAELLE-II to III flow at this time. As this is an extremely small vessel, it was felt that it did not need to be saved at this time as the amount of myocardium is extremely small. The wire was removed. EBU catheter was removed over a J-wire. Sheath was sewn in with a plan to remove once the ACT's were within a normal range. The patient was given 180 mg of Brilinta loading dose in the labor delivery rn. The patient left the labor delivery rn cardiovascularly stable. FINDINGS Left main normal size vessel with adequate reflux and no significant disease. LAD normal-sized vessel with proximal 40% disease. Midportion has a 99% functional occlusion with MICHAELLE-I flow distally. Status post Resolute drug-eluting stent (2.25 x 12) with MICHAELLE-III flow after intervention (lesion length 12 mm). Left circumflex mild luminal irregularities throughout. Gives off three major obtuse marginales with no significant disease. RCA normal-size vessel dominant in nature. It has mild luminal irregularities throughout until the distal portion which has a 38% lesion. PDA has no significant disease but the major posterolateral branch has a 30-40% disease in the midportion. LVEDP 13. IMPRESSIONS 1. Acute anteroseptal stenting status post Resolute drug-eluting stent (2.25 x 12) 2. Mild to moderate coronary artery disease as above otherwise. 3. Accelerated hypertension 4. Tobacco abuse RECOMMENDATIONS 1. Mr. Roberts presented with an acute anterior septal STEMI and has since had a Resolute drug-eluting stent placed. He will be placed on aspirin and Brilinta and was loaded with Brilinta within the lab. 2. If Brilinta is too expensive on refills, he will call Dr. Gordon or myself and be switched to Plavix. 3. We will check a 2-D echo to look at his overall left ventricular function, cardiac structure and possible valvopathies. 4. He will plan to be in the hospital for the next 48 hours as he presented with an acute myocardial infarction. 5. Dr. 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 6. He will be placed on beta kita therapy and we need to get his blood pressure controlled. SALVADOR inhibitor will be held at this time as his creatinine is elevated compared to a previous one, although this may be acute kidney injury versus chronic kidney disease. 7. Further recommendations will be made based on the hospital course. Thank you for allowing me to see Otf Roberts. If there are any questions, please do not hesitate to call. Rodrigue Hartman DO VGP/DJL /7:48 PM /8:26 AM
[2017-05-26] MEDS ORDERED: TICAGRELOR 90 MG TAB PO SCH (09:00)
[2017-05-26] MEDS: ASPIRIN 81 MG CHEW TAB PO SCH (09:04)
[2017-05-26] MEDS: TICAGRELOR 90 MG TAB PO SCH ×2 (09:04→20:37)
[2017-05-26] MEDS: TAMSULOSIN HCL 0.4 MG CAP PO SCH (09:04)
[2017-05-26] MEDS: METOPROLOL TARTRATE 25 MG TAB PO SCH (09:05)
--- NOTE | 2017-05-26 10:21 | PD.CARD.PN ---
Subjective Subjective Remarks no angina Objective Medications Current Medications Medications (Trade) Dose Ordered Sig/Hubert Route Start Time Stop Time Status Last Admin (NS Flush) 2 ml UNSCH PRN IVF 05/25/17 15:15 Sodium Chloride 2 ml 2 ml UNSCH PRN IVF 05/25/17 15:30 (Nitroglycerin-Dextrose Inj) 250 ml @ 0 mls/hr TITRATE IV 05/25/17 15:30 (Tylenol) 325 mg Q4H PRN PO 05/25/17 18:45 (Percocet 5-325 Mg) 1 tab Q4H PRN PO 05/25/17 18:45 05/25/17 21:59 (Percocet 10-325 Mg) 1 tab Q4H PRN PO 05/25/17 18:45 (Morphine Inj) 2 mg Q30M PRN IV PUSH 05/25/17 18:45 (Aspirin Chew) 81 mg DAILY PO 05/26/17 09:00 05/26/17 09:04 Atropine Sulfate 0.5 mg 0.5 mg UNSCH PRN IV 05/25/17 18:45 (NS 250 ml Inj) 250 ml @ 500 mls/hr ONCE PRN IV 05/25/17 18:45 05/26/17 18:44 (Zofran Inj) 4 mg Q4H PRN IV 05/25/17 18:45 (Heparin Inj) 5,000 units Q8HR SQ 05/26/17 22:00 (Lopressor) 12.5 mg BID PO 05/25/17 21:00 05/26/17 09:05 (Lipitor) 80 mg HS PO 05/25/17 21:00 05/25/17 20:59 (Flomax) 0.4 mg DAILY PO 05/26/17 09:00 05/26/17 09:04 (Proair Hfa Inh) 2 puff Q6HR PRN INH 05/25/17 18:45 (Brilinta) 90 mg BID PO 05/25/17 21:00 05/26/17 09:04 (Apresoline Inj) 10 mg Q4H PRN IV PUSH 05/25/17 19:15 05/25/17 22:00 (KCl) 30 meq ONCE ONCE PO 05/26/17 10:30 05/26/17 10:31 UNV Vital Signs / I&O Vital Signs Date Time Temp Pulse Resp B/P Pulse Ox O2 Delivery O2 Flow Rate FiO2 05/26/17 08:00 97.5 87 16 155/104 95 05/26/17 06:00 80 05/26/17 05:00 78 05/26/17 04:00 80 05/26/17 03:00 98.0 82 20 162/92 97 05/26/17 03:00 84 05/26/17 02:00 88 05/26/17 01:00 84 05/26/17 00:00 92 05/25/17 23:15 18 05/25/17 23:00 98.2 94 18 157/93 97 05/25/17 23:00 96 05/25/17 22:00 86 05/25/17 21:00 84 05/25/17 20:00 86 05/25/17 19:00 86 05/25/17 19:00 98.0 76 22 171/115 97 05/25/17 15:28 88 18 206/115 99 Nasal Cannula 2 05/25/17 15:19 99 Nasal Cannula 2 05/25/17 15:15 90 18 205/125 98 Nasal Cannula 2 05/25/17 15:15 93 Nasal Cannula 05/25/17 15:10 98.2 92 18 211/127 96 05/25/17 15:02 92 96 Room Air I/O 05/25/17 05/25/17 05/25/17 05/26/17 05/26/17 05/26/17 06:59 14:59 22:59 06:59 14:59 22:59 Intake Total 480 ml Output Total 500 ml Balance -20 ml Intake Oral 480 ml Output Urine Total 500 ml # Voids 1 Physical Exam GENERAL: Well developed, well nourished. No acute distress. HEENT: Jugular venous pressure is normal. CHEST: Lungs clear to auscultation bilaterally. Unlabored respiratory effort. CARDIAC: Regular rate and rhythm without S3, S4, or murmur. ABDOMEN: Soft, nontender, no hepatosplenomegaly. Bowel sounds present. EXTREMITIES: No clubbing, cyanosis, or edema. right groin ok Laboratory Laboratory Tests Test 05/25/17 05/26/17 15:20 05:50 White Blood Count 10.4 TH/MM3 10.2 TH/MM3 Red Blood Count 5.45 MIL/MM3 5.02 MIL/MM3 Hemoglobin 16.1 GM/DL 15.6 GM/DL Hematocrit 48.0 % 44.5 % Mean Corpuscular Volume 88.0 FL 88.6 FL Mean Corpuscular Hemoglobin 29.5 PG 31.0 PG Mean Corpuscular Hemoglobin 33.5 % 35.0 % Concent Red Cell Distribution Width 13.9 % 15.1 % Platelet Count 217 TH/MM3 185 TH/MM3 Mean Platelet Volume 9.4 FL 9.6 FL Neutrophils (%) (Auto) 67.6 % 62.8 % Lymphocytes (%) (Auto) 21.9 % 25.1 % Monocytes (%) (Auto) 6.6 % 8.2 % Eosinophils (%) (Auto) 2.6 % 3.3 % Basophils (%) (Auto) 1.3 % 0.6 % Neutrophils # (Auto) 7.0 TH/MM3 6.4 TH/MM3 Lymphocytes # (Auto) 2.3 TH/MM3 2.6 TH/MM3 Monocytes # (Auto) 0.7 TH/MM3 0.8 TH/MM3 Eosinophils # (Auto) 0.3 TH/MM3 0.3 TH/MM3 Basophils # (Auto) 0.1 TH/MM3 0.1 TH/MM3 CBC Comment DIFF FINAL DIFF FINAL Differential Comment Prothrombin Time 10.4 SEC Prothromb Time International 0.9 RATIO Ratio Activated Partial 28.2 SEC Thromboplast Time Sodium Level 140 MEQ/L 138 MEQ/L Potassium Level 4.5 MEQ/L 3.3 MEQ/L Chloride Level 107 MEQ/L 105 MEQ/L Carbon Dioxide Level 23.6 MEQ/L 22.0 MEQ/L Anion Gap 9 MEQ/L 11 MEQ/L Blood Urea Nitrogen 26 MG/DL 21 MG/DL Creatinine 1.40 MG/DL 1.18 MG/DL Estimat Glomerular Filtration 52 ML/MIN 63 ML/MIN Rate Random Glucose 161 MG/DL 132 MG/DL Calcium Level 8.9 MG/DL 9.0 MG/DL Magnesium Level 1.6 MG/DL Total Creatine Kinase 185 U/L Creatine Kinase MB 2.8 NG/ML Troponin I 0.02 NG/ML B-Type Natriuretic Peptide 58 PG/ML Triglycerides Level 466 MG/DL Cholesterol Level 175 MG/DL LDL Cholesterol MG/DL HDL Cholesterol 27.4 MG/DL Cholesterol/HDL Ratio 6.38 RATIO Assessment and Plan Problem List: (1) ST elevation myocardial infarction (STEMI) of anterior wall (2) HTN (hypertension) Assessment and Plan: Carvedilol/lisinopril (3) HLD (hyperlipidemia) (4) Stented coronary artery Assessment and Plan: cont ASA 81mg and Brilinta (5) Tobacco abuse Assessment and Plan: counseled Chalino Gordon MD May 26, 2017 10:21
[2017-05-26] MEDS ORDERED: POTASSIUM CHLORIDE 10 MEQ CONTROLLED RELEASE TAB PO ONE (10:30)
[2017-05-26] MEDS ORDERED: POTASSIUM CHLORIDE 25 MEQ EFFERVESCENT TAB PO ONE ×2 (11:00→16:00)
--- NOTE | 2017-05-26 14:44 | EKG ---
Date Performed: 05/25/2017 Time Performed: 15:07:09 PTAGE: 62 years EKG: Sinus rhythm LEFT ANTERIOR FASCICULAR BLOCK LEFT VENTRICULAR HYPERTROPHY AND ST-T CHANGE ACUTE ANTERIOR INJURY IS NEW SINCE PRIOR TRACING ABNORMAL ECG PREVIOUS TRACING : 02/13/2014 10.34 DOCTOR: Chalino Gordon Interpretating Date/Time 05/26/2017 14:42:34
[2017-05-26] MEDS: LISINOPRIL 20 MG TAB PO SCH (15:03)
[2017-05-26] MEDS: CARVEDILOL 6.25 MG TAB PO SCH ×2 (15:03→20:36)
--- NOTE | 2017-05-26 16:10 | ECHRPT ---
Indication: STEMI CONCLUSIONS Normal left ventricular size. Mild concentric left ventricular hypertrophy. The left ventricular systolic function is normal with an estimated ejection fraction in the range of 55-60%. [id number] dilated proximal ascending aorta of 3.9 cm. Aortic valve sclerosis is present. Trace aortic valve regurgitation. There is mild tricuspid valve regurgitation. BP: / HR: Rhythm: Sinus MEASUREMENTS (Male / Female) Normal Values Technical Quality: 2D ECHO LV Diastolic Diameter PLAX 5.5 cm 4.2 - 5.9 / 3.9 - 5.3 cm LV Systolic Diameter PLAX 4.1 cm IVS Diastolic Thickness 1.5 cm 0.6 - 1.0 / 0.6 - 0.9 cm LVPW Diastolic Thickness 1.0 cm 0.6 - 1.0 / 0.6 - 0.9 cm LV Relative Wall Thickness 0.4 LA Systolic Diameter LX 3.5 cm 3.0 - 4.0 / 2.7 - 3.8 cm M-MODE Aortic Root Diameter MM 3.9 cm AV Cusp Separation MM 1.7 cm DOPPLER AV Peak Velocity 230.0 cm/s AV Peak Gradient 21.2 mmHg AV Mean Gradient 10.0 mmHg AV Velocity Time Integral 50.9 cm LVOT Peak Velocity 91.0 cm/s LVOT Peak Gradient 3.3 mmHg LVOT Velocity Time Integral 20.3 cm TR Peak Velocity 299.0 cm/s TR Peak Gradient 35.8 mmHg FINDINGS LEFT VENTRICLE Normal left ventricular size. Mild concentric left ventricular hypertrophy. The left ventricular systolic function is normal with an estimated ejection fraction in the range of 55-60%. RIGHT VENTRICLE Normal right ventricular size and systolic function. LEFT ATRIUM The left atrial size is upper limits of normal. RIGHT ATRIUM The right atrial size is normal. ATRIAL SEPTUM Normal atrial septal thickness without atrial level shunting by limited color doppler interrogation. AORTA Hbor-ph-thcjzmsxad dilated proximal ascending aorta of 3.9 cm. MITRAL VALVE Structurally normal mitral valve. No mitral valve stenosis or regurgitation. AORTIC VALVE Aortic valve sclerosis is present. Trace aortic valve regurgitation. TRICUSPID VALVE There is mild tricuspid valve regurgitation. PULMONARY VALVE The pulmonary valve is not well visualized. VESSELS The inferior vena cava is normal in size. PERICARDIUM No pericardial effusion. Naveen Meek MD, FACC (Electronically Signed) Final Date:26 May 2017 16:08
[2017-05-26] MEDS: hydrALAZINE HCL 20 MG/ML VIAL IV PUSH PRN (17:57)
[2017-05-26] MEDS: ATORVASTATIN 40 MG TAB PO SCH (20:36)
[2017-05-26] MEDS ORDERED: HEPARIN SODIUM - SQ 10,000 UNITS/ML VIAL SQ SCH (22:00)
[2017-05-27] VITALS (13 sets, daily range): BP systolic 121–146; BP diastolic 74–94; PULSE 72–87; RESP 20; TEMP 97.4; O2SAT 96–98
[2017-05-27 06:03] LABS: BICARBONATE 23.2 MEQ/L (21.0-32.0); MAGNESIUM 1.6 MG/DL (1.5-2.5); POTASSIUM 3.4 MEQ/L (3.5-5.1)
--- NOTE | 2017-05-27 08:37 | HHI.PR ---
Subjective Remarks resting comfortably with no distress. denies chest pain or sob. no new complaints. Objective Vitals Vital Signs Date Time Temp Pulse Resp B/P Pulse Ox O2 Delivery O2 Flow Rate FiO2 05/27/17 08:00 73 05/27/17 07:30 78 20 146/94 96 05/27/17 07:00 77 05/27/17 06:00 72 05/27/17 05:00 78 05/27/17 04:20 82 05/27/17 04:00 80 05/27/17 04:00 81 20 132/75 98 05/27/17 03:00 78 05/27/17 02:00 84 05/27/17 01:00 84 05/27/17 00:00 83 05/27/17 00:00 97.4 82 20 121/74 97 05/26/17 23:00 84 05/26/17 22:00 80 05/26/17 21:00 88 05/26/17 20:00 89 05/26/17 20:00 97.8 92 20 174/95 97 05/26/17 19:00 92 05/26/17 18:00 84 05/26/17 17:00 98.3 78 16 169/105 98 05/26/17 17:00 77 05/26/17 16:00 82 05/26/17 15:08 97.8 85 14 161/99 95 05/26/17 15:00 79 05/26/17 14:00 80 05/26/17 13:00 79 05/26/17 12:00 88 05/26/17 11:00 80 05/26/17 10:00 80 05/26/17 09:00 82 I/O 05/26/17 05/26/17 05/26/17 05/27/17 05/27/17 05/27/17 07:00 15:00 23:00 07:00 15:00 23:00 Intake Total 480 ml 850 ml 480 ml Output Total 500 ml 1200 ml 725 ml Balance -20 ml -350 ml -245 ml Intake Oral 480 ml 850 ml 480 ml Output Urine Total 500 ml 1200 ml 725 ml # Voids 1 # Bowel Movements 1 Result Diagram: 05/26/17 0550 05/27/17 0330 Imaging Last Impressions Chest X-Ray 05/25/17 5675 Signed Impressions: Service Date/Time: Thursday, May 25, 2017 15:17 - CONCLUSION: No acute disease. Abhijit Escudero Jr., MD Objective Remarks GENERAL: This is a well-nourished, well-developed patient, in no apparent distress. CARDIOVASCULAR: Regular rate and regular rhythm without murmurs, gallops, or rubs. RESPIRATORY: Clear to auscultation. Breath sounds equal bilaterally. No wheezes , rales, or rhonchi. GASTROINTESTINAL: Abdomen soft, non-tender, nondistended. Normal, active bowel sounds MUSCULOSKELETAL: Extremities without clubbing, cyanosis, or edema. NEURO: Alert & Oriented x4 to person, place, time, situation. Moves all ext x4 Procedures cardiac cath. Medications and IVs Current Medications Aspirin (Aspirin) 325 mg ONCE ONCE PO Last administered on 05/25/17 15:25; Start 05/25/17 at 15:15; Stop 05/25/17 at 15:16; Status DC Morphine Sulfate 4 mg 4 mg ONCE ONCE IV PUSH Last administered on 05/25/17 15 :28; Start 05/25/17 at 15:15; Stop 05/25/17 at 15:16; Status DC Nitroglycerin/ Dextrose (Nitroglycerin-Dextrose Inj) 250 ml @ 0 mls/hr TITRATE ONCE IV Last administered on 05/25/17 15:26; Start 05/25/17 at 15:15; Stop at 15:16; Status DC Sodium Chloride (NS Flush) 2 ml UNSCH PRN IVF FLUSH AFTER USING IV ACCESS; Start 05/25/17 at 15:15 Metoprolol Tartrate 5 mg 5 mg Q5M IVS Last administered on 05/25/17 15:29; Start 05/25/17 at 15:15; Stop 05/25/17 at 15:26; Status DC Sodium Chloride (NS 1000 ml Inj) 1,000 ml @ 0 mls/hr Q0M ONCE IV ; Start at 15:18; Stop 05/25/17 at 15:20; Status DC Sodium Chloride (NS Flush) 2 ml UNSCH PRN IVF FLUSH AFTER USING IV ACCESS; Start 05/25/17 at 15:30 Aspirin 324 mg 324 mg NOW STAT PO ; Start 05/25/17 at 15:18; Stop 05/25/17 at 15:20; Status DC Nitroglycerin/ Dextrose (Nitroglycerin-Dextrose Inj) 250 ml @ 0 mls/hr TITRATE IV ; Start 05/25/17 at 15:30 Heparin Sodium (Porcine) 5000 units 5,000 units NOW STAT IV Last administered on 05/25/17 15:25; Start 05/25/17 at 15:18; Stop 05/25/17 at 15:21; Status DC Nitroglycerin/ Dextrose (Nitroglycerin-Dextrose Inj) 250 ml @ As Directed STK- MED ONCE .ROUTE ; Start 05/25/17 at 15:19; Stop 05/25/17 at 15:20; Status DC Aspirin (Aspirin Chew) 324 mg STK-MED ONCE .ROUTE ; Start 05/25/17 at 15:20; Stop 05/25/17 at 15:21; Status DC Heparin Sodium (Porcine) (Heparin Inj) 10,000 units STK-MED ONCE .ROUTE ; Start 05/25/17 at 15:20; Stop 05/25/17 at 15:21; Status DC Nitroglycerin 0.4 mg 0.4 mg STK-MED ONCE SL ; Start 05/25/17 at 15:20; Stop at 15:21; Status DC Heparin Sodium/ Sodium Chloride (Heparin-NS/Pf Inj) 500 ml @ As Directed STK- MED ONCE .ROUTE Last administered on 05/25/17 16:11; Start 05/25/17 at 16:11; Stop 05/25/17 at 16:12; Status DC Midazolam HCl (Versed Inj) 2 mg STK-MED ONCE .ROUTE Last administered on 16:12; Start 05/25/17 at 16:12; Stop 05/25/17 at 16:13; Status DC Fentanyl Citrate (fentaNYL INJ) 100 mcg STK-MED ONCE .ROUTE Last administered on 05/25/17 16:12; Start 05/25/17 at 16:12; Stop 05/25/17 at 16:13; Status DC Heparin Sodium (Porcine) 89528 units 10,000 units STK-MED ONCE .ROUTE Last administered on 05/25/17 16:12; Start 05/25/17 at 16:12; Stop 05/25/17 at 16:13 ; Status DC Nitroglycerin (Nitroglycerin Inj) 5 ml @ As Directed STK-MED ONCE .ROUTE Last administered on 05/25/17 16:12; Start 05/25/17 at 16:12; Stop 05/25/17 at 16:13 ; Status DC Ticagrelor (Brilinta) 180 mg STK-MED ONCE PO Last administered on 05/25/17 16: 59; Start 05/25/17 at 16:59; Stop 05/25/17 at 17:00; Status DC Acetaminophen (Tylenol) 325 mg Q4H PRN PO PAIN SCALE 1 TO 2 Last administered on 05/26/17 20:41; Start 05/25/17 at 18:45 Oxycodone/ Acetaminophen (Percocet 5-325 Mg) 1 tab Q4H PRN PO PAIN SCALE 3 TO 5 Last administered on 05/25/17 21:59; Start 05/25/17 at 18:45 Oxycodone/ Acetaminophen (Percocet 10-325 Mg) 1 tab Q4H PRN PO PAIN SCALE 6 TO 10; Start 05/25/17 at 18:45 Morphine Sulfate (Morphine Inj) 2 mg Q30M PRN IV PUSH BREAKTHROUGH PAIN; Start 05/25/17 at 18:45 Aspirin (Aspirin Chew) 81 mg DAILY PO Last administered on 05/26/17 09:04; Start 05/26/17 at 09:00 Ticagrelor (Brilinta) 90 mg BID PO ; Start 05/26/17 at 09:00; Stop 05/26/17 at 09:00; Status DC Miscellaneous Information 1 ONCE ONCE XX ; Start 05/25/17 at 18:45; Stop at 18:45; Status DC Atropine Sulfate 0.5 mg 0.5 mg UNSCH PRN IV VAGAL REPONSE; Start 05/25/17 at 18 :45 Sodium Chloride (NS 250 ml Inj) 250 ml @ 500 mls/hr ONCE PRN IV VAGAL REPONSE ; Start 05/25/17 at 18:45; Stop 05/26/17 at 18:44; Status DC Ondansetron HCl (Zofran Inj) 4 mg Q4H PRN IV NAUSEA; Start 05/25/17 at 18:45 Heparin Sodium (Porcine) (Heparin Inj) 5,000 units Q8HR SQ ; Start 05/26/17 at 22:00; Stop 05/26/17 at 22:00; Status DC Metoprolol Tartrate (Lopressor) 12.5 mg BID PO Last administered on 05/26/17 09:05; Start 05/25/17 at 21:00; Stop 05/26/17 at 10:19; Status DC Atorvastatin Calcium (Lipitor) 80 mg HS PO Last administered on 05/26/17 20:36 ; Start 05/25/17 at 21:00 Tamsulosin HCl (Flomax) 0.4 mg DAILY PO Last administered on 05/26/17 09:04; Start 05/26/17 at 09:00 Albuterol Sulfate (Proair Hfa Inh) 2 puff Q6HR PRN INH SHORTNESS OF BREATH; Start 05/25/17 at 18:45 Ticagrelor (Brilinta) 90 mg BID PO Last administered on 05/26/17 20:37; Start 05/25/17 at 21:00 Hydralazine HCl (Apresoline Inj) 10 mg ONCE ONCE IV PUSH Last administered on 05/25/17 19:20; Start 05/25/17 at 19:15; Stop 05/25/17 at 19:16; Status DC Hydralazine HCl (Apresoline Inj) 10 mg Q4H PRN IV PUSH SBP>160, DBP>90 Last administered on 05/26/17 17:57; Start 05/25/17 at 19:15 Iohexol (OMNIPAQUE 350 INJ (Learning Support Resource Room Teacher)) 100 ml STK-MED ONCE OTHER ; Start at 16:00; Stop 05/26/17 at 09:57; Status DC Iohexol (OMNIPAQUE 350 INJ (Learning Support Resource Room Teacher)) 50 ml STK-MED ONCE OTHER ; Start at 16:00; Stop 05/26/17 at 09:57; Status DC Potassium Chloride (KCl) 30 meq ONCE ONCE PO Last administered on 05/26/17 15 :04; Start 05/26/17 at 10:30; Stop 05/26/17 at 10:31; Status DC Carvedilol (Coreg) 6.25 mg Q12HR PO Last administered on 05/26/17 20:36; Start 05/26/17 at 11:00 Lisinopril (Prinivil) 20 mg DAILY PO Last administered on 05/26/17 15:03; Start 05/26/17 at 11:00 Potassium Bicarb/ Potassium Chloride (K-Lyte Cl Eff) 25 meq ONCE ONCE PO Last administered on 05/26/17 17:58; Start 05/26/17 at 11:00; Stop 05/26/17 at 11:01; Status DC Potassium Bicarb/ Potassium Chloride (K-Lyte Cl Eff) 25 meq ONCE ONCE PO Last administered on 05/26/17 17:58; Start 05/26/17 at 16:00; Stop 05/26/17 at 16:01; Status DC A/P Assessment and Plan A/P - STEMI s/p cardiac cath/ stent placement. continue aspirin, Brilinta,coreg, lisinopril and statin. cardiology following. Discharge Planning dc home when cleared by cardiology. Millie Martins MD May 27, 2017 08:37
[2017-05-27] MEDS ORDERED: ATOR40TA16 PO (08:40)
[2017-05-27] MEDS ORDERED: ASPI81CH25 PO (08:40)
[2017-05-27] MEDS ORDERED: LISI-515 PO (08:40)
[2017-05-27] MEDS ORDERED: BRIL90TA PO (08:40)
[2017-05-27] MEDS ORDERED: CARV6.25 PO (08:40)
[2017-05-27] MEDS ORDERED: POTASSIUM CHLORIDE 10 MEQ CONTROLLED RELEASE TAB PO ONE (08:45)
[2017-05-27] MEDS ORDERED: CARVEDILOL 12.5 MG TAB PO SCH (09:00)
[2017-05-27] MEDS: TAMSULOSIN HCL 0.4 MG CAP PO SCH (09:06)
[2017-05-27] MEDS: TICAGRELOR 90 MG TAB PO SCH (09:06)
[2017-05-27] MEDS: ASPIRIN 81 MG CHEW TAB PO SCH (09:07)
[2017-05-27] MEDS: LISINOPRIL 20 MG TAB PO SCH (09:07)
--- NOTE | 2017-05-27 09:59 | PD.CARD.PN ---
Subjective Subjective Remarks No complaints Objective Medications GENERAL: Well developed, well nourished. No acute distress. HEENT: Jugular venous pressure is normal. CHEST: Lungs clear to auscultation bilaterally. Unlabored respiratory effort. CARDIAC: Regular rate and rhythm without S3, S4, or murmur. ABDOMEN: Soft, nontender, no hepatosplenomegaly. Bowel sounds present. EXTREMITIES: No clubbing, cyanosis, or edema. Right groin bruising but no hematoma Vital Signs / I&O Vital Signs Date Time Temp Pulse Resp B/P Pulse Ox O2 Delivery O2 Flow Rate FiO2 05/27/17 09:00 87 05/27/17 08:00 73 05/27/17 07:30 78 20 146/94 96 05/27/17 07:00 77 05/27/17 06:00 72 05/27/17 05:00 78 05/27/17 04:20 82 05/27/17 04:00 80 05/27/17 04:00 81 20 132/75 98 05/27/17 03:00 78 05/27/17 02:00 84 05/27/17 01:00 84 05/27/17 00:00 83 05/27/17 00:00 97.4 82 20 121/74 97 05/26/17 23:00 84 05/26/17 22:00 80 05/26/17 21:00 88 05/26/17 20:00 89 05/26/17 20:00 97.8 92 20 174/95 97 05/26/17 19:00 92 05/26/17 18:00 84 05/26/17 17:00 98.3 78 16 169/105 98 05/26/17 17:00 77 05/26/17 16:00 82 05/26/17 15:08 97.8 85 14 161/99 95 05/26/17 15:00 79 05/26/17 14:00 80 05/26/17 13:00 79 05/26/17 12:00 88 05/26/17 11:00 80 05/26/17 10:00 80 I/O 05/26/17 05/26/17 05/26/17 05/27/17 05/27/17 05/27/17 06:59 14:59 22:59 06:59 14:59 22:59 Intake Total 480 ml 850 ml 480 ml Output Total 500 ml 1200 ml 725 ml Balance -20 ml -350 ml -245 ml Intake Oral 480 ml 850 ml 480 ml Output Urine Total 500 ml 1200 ml 725 ml # Voids 1 # Bowel Movements 1 Physical Exam GENERAL: Well developed, well nourished. No acute distress. HEENT: Jugular venous pressure is normal. CHEST: Lungs clear to auscultation bilaterally. Unlabored respiratory effort. CARDIAC: Regular rate and rhythm without S3, S4, or murmur. ABDOMEN: Soft, nontender, no hepatosplenomegaly. Bowel sounds present. EXTREMITIES: No clubbing, cyanosis, or edema. right groin ok Laboratory Laboratory Tests Test 05/27/17 03:30 Sodium Level 137 MEQ/L Potassium Level 3.4 MEQ/L Chloride Level 104 MEQ/L Carbon Dioxide Level 23.2 MEQ/L Anion Gap 10 MEQ/L Blood Urea Nitrogen 19 MG/DL Creatinine 1.16 MG/DL Estimat Glomerular Filtration 64 ML/MIN Rate Random Glucose 127 MG/DL Calcium Level 8.9 MG/DL Magnesium Level 1.6 MG/DL Assessment and Plan Problem List: (1) ST elevation myocardial infarction (STEMI) of anterior wall Assessment and Plan: stable since stenting (2) HTN (hypertension) Assessment and Plan: carvedilol increased (3) HLD (hyperlipidemia) Assessment and Plan: cont Crestor 40 at home (4) Stented coronary artery Assessment and Plan: cont ASA 81 + Brilinta 90 bid (5) Tobacco abuse Assessment and Plan: he will stop (6) Hypokalemia Assessment and Plan: 40 meq PO Assessment and Plan OK to PR home. OV 2 weeks. No strenuous activity Chalino Gordon MD May 27, 2017 09:59
[2017-05-27] MEDS ORDERED: CARV12.5 PO (10:23)
--- NOTE | 2017-05-27 10:27 | HHI.DS ---
Discharge Summary Admission Date May 25, 2017 at 19:10 Discharge Date: May 27, 2017 Admitting Diagnosis STEMI (1) ST elevation myocardial infarction (STEMI) of anterior wall ICD Code: I21.09 Diagnosis: Principal Procedures cardiac cath. Brief History - From Admission Otf Roberts is a pleasant 62-year-old male who arrived to [facility] in [place] on May 25, 2017 due to chest pain. He states that the chest pain started about an hour to an hour and a half prior to arriving to the ER. Chest pain was in the center of the chest and radiated to his left shoulder. CBC/BMP: 05/26/17 0550 05/27/17 0330 Significant Findings Laboratory Tests Test 05/25/17 05/26/17 05/27/17 15:20 05:50 03:30 Blood Urea Nitrogen 26 MG/DL (7-18) 21 MG/DL (7-18) 19 MG/DL (7-18) Creatinine 1.40 MG/DL (0.60-1.30) Estimat Glomerular Filtration 52 ML/MIN (>89) 63 ML/MIN (>89) 64 ML/MIN (>89) Rate Random Glucose 161 MG/DL 132 MG/DL 127 MG/DL (74-106) (74-106) (74-106) Monocytes (%) (Auto) 8.2 % (0.0-8.0) Potassium Level 3.3 MEQ/L 3.4 MEQ/L (3.5-5.1) (3.5-5.1) Triglycerides Level 466 MG/DL (42-150) HDL Cholesterol 27.4 MG/DL (40.0-60.0) Imaging Last Impressions Chest X-Ray 05/25/17 1515 Signed Impressions: Service Date/Time: Thursday, May 25, 2017 15:17 - CONCLUSION: No acute disease. Abhijit Escudero Jr., MD PE at Discharge GENERAL: This is a well-nourished, well-developed patient, in no apparent distress. CARDIOVASCULAR: Regular rate and regular rhythm without murmurs, gallops, or rubs. RESPIRATORY: Clear to auscultation. Breath sounds equal bilaterally. No wheezes , rales, or rhonchi. GASTROINTESTINAL: Abdomen soft, non-tender, nondistended. Normal, active bowel sounds MUSCULOSKELETAL: Extremities without clubbing, cyanosis, or edema. NEURO: Alert & Oriented x4 to person, place, time, situation. Moves all ext x4 Hospital Course - STEMI s/p cardiac cath/ stent placement. continue aspirin, Brilinta,coreg, lisinopril and statin. cardiology following. Pt Condition on Discharge: Good Discharge Disposition: Discharge Home Discharge Time: <= 30 minutes Discharge Instructions DIET: Follow Instructions for: Heart Healthy Diet Activities you can perform: See Additionl Instruction Other Activity Instructions: no strenous activity. Follow up Referrals: Cardiology - 2 Weeks PCP Follow-up New Medications: Aspirin (Aspirin Low Strength) 81 Mg Chew 81 MG PO DAILY cad Days 30 Ref 0 EA Atorvastatin (Atorvastatin) 40 Mg Tab 80 MG PO HS cad Days 30 Ref 0 TAB Carvedilol (Coreg) 12.5 Mg Tab 12.5 MG PO Q12HR cad Days 30 Ref 0 TAB Lisinopril (Lisinopril) 20 Mg Tab 20 MG PO DAILY cad Days 30 Ref 0 TAB Ticagrelor (Brilinta) 90 Mg Tab 90 MG PO BID cad Days 30 Ref 0 TAB Continued Medications: Albuterol Sulfate (Proventil Hfa) 6.7 Gm Aero 2 PUFF INH Q6H * SHAKE WELL BEFORE USE * PRN #1 Cholecalciferol (Vitamin D) 5,000 Unit Tab 5000 UNIT PO WEEKLY TAB Febuxostat (Uloric) 40 Mg Tab 40 MG PO DAILY TAB Tamsulosin 0.4 mg (Tamsulosin 0.4 mg) 0.4 Mg Cap PO DAILY Zolpidem Tartrate (Zolpidem Tartrate) 10 Mg Tab 10 MG OR HSPRN Discontinued Medications: Ezetimibe (Zetia) 10 Mg Tab 10 MG PO DAILY TAB Olmesartan Medoxomil-Amlodipin (Tribenzor) 1 Tab Tab PO DAILY Prednisone (Deltasone) 20 Mg Tab 40 MG PO DAILY #10 Rosuvastatin Calcium (Crestor) 40 Mg Tab 40 MG PO DAILY Millie Martins MD May 27, 2017 10:27
== END 2017-05-27 11:38 | disposition home or self-care (01) | DRG 247 ==
LOC: PHED 15:01 → HCIN 19:10
PROVIDERS: ADMIT Internal Medicine; ATTEND Internal Medicine
PROC: 027034Z Dilation of Coronary Artery, One Artery with Drug-eluting Intraluminal Device, Percutaneous Approach (ICD-10-PCS; principal; 2017-05-25)
PROC: 4A023N7 Measurement of Cardiac Sampling and Pressure, Left Heart, Percutaneous Approach (ICD-10-PCS; 2017-05-25)
PROC: B2111ZZ Fluoroscopy of Multiple Coronary Arteries using Low Osmolar Contrast (ICD-10-PCS; 2017-05-25)
DX: I21.09 ST elevation (STEMI) myocardial infarction involving other coronary artery of anterior wall (principal); E11.65 Type 2 diabetes mellitus with hyperglycemia; I10 Essential (primary) hypertension; E78.5 Hyperlipidemia, unspecified; I25.10 Atherosclerotic heart disease of native coronary artery without angina pectoris; K21.9 Gastro-esophageal reflux disease without esophagitis; E87.6 Hypokalemia; M10.9 Gout, unspecified; N40.0 Benign prostatic hyperplasia without lower urinary tract symptoms; Z72.0 Tobacco use; Z92.21 Personal history of antineoplastic chemotherapy
CPT/HCPCS: 71010; 80048; 80061; 82550; 82552; 83735; 83880; 84484; 85002; 85025; 85610; 85730; 92941; 93005; 93306; 93454; C1725; C1769; C1874; C1887; C1893; J0360; J1644; J2250; J2270; J3010; Q9967

== ENCOUNTER 2017-07-22 14:09 | Emergency (ER) | payer OTHER ==
[~2017-07-22] VITALS: Ht 182.9 cm; Wt 99.2 kg
[~2017-07-22 14:09] MED LIST changes: +ASPI81CH25 PO; +ATOR40TA16 PO; +BRIL90TA PO; +CARV12.5 PO; +LISI-515 PO; -PRED20 PO; -ROSU40 PO; -TRIBTAB3 PO; -ZETI10TA5 PO
[2017-07-22 14:16] VITALS: BP 164/89; PULSE 81; RESP 16; TEMP 97.4; O2SAT 97
[2017-07-22] MEDS ORDERED: ULOR40TA (14:26)
[2017-07-22] MEDS ORDERED: TAMS0.4C4 PO (14:26)
[2017-07-22] MEDS ORDERED: VITA1000 PO (14:26)
[2017-07-22] MEDS ORDERED: ZOLP10TA3 PO (14:26)
[2017-07-22] MEDS ORDERED: ALBU6.7H INH (14:26)
[2017-07-22] MEDS ORDERED: RANI300T PO (14:27)
[2017-07-22] MEDS ORDERED: LOSA50TA PO (14:27)
--- NOTE | 2017-07-22 14:41 | PD ---
HPI Chief Complaint: Nosebleed Time Seen by Provider: 14:37 Travel History International Travel<30 days: No Contact w/Intl Traveler<30days: No Traveled to known affect area: No History of Present Illness HPI This is a 62-year-old male who presents today with complaints of left sided epistaxis. Patient states his been on and off for 2 hours. The patient is on Brilinta and aspirin. The patient states it's only present when he leans forward. He denies any posterior bleeding. He states it's just a minimal amount however keeps bleeding and he can't get it to stop. There are no other complaints the time my examination. PFSH Past Medical History Hx Anticoagulant Therapy: Yes Arthritis: No Asthma: Yes ( A CHILD) Autoimmune Disease: No Heart Rhythm Problems: No Cancer: Yes (TESTICULAR ) Cardiac Catheterization: Yes (09/06) Cardiovascular Problems: Yes (Heart Attack) High Cholesterol: Yes Chemotherapy: Yes Chest Pain: No Congestive Heart Failure: No COPD: No Cerebrovascular Accident: No Coronary Artery Disease: Yes (25 % BLOCKAGE CAD) Diabetes: Yes Diminished Hearing: No Endocrine: Yes GERD: Yes Genitourinary: No Headaches: No Hepatitis: No Hiatal Hernia: No Hypertension: Yes Immune Disorder: No Musculoskeletal: No Neurologic: No Psychiatric: No Reproductive: No Respiratory: Yes Myocardial Infarction: No Seizures: No Sleep Apnea: No Ulcer: No ?: Not Past Surgical History Abdominal Surgery: Yes (LEFT ABD QUAD LYMPH NODE REMOVED 1982) AICD: No Cardiac Surgery: No Ear Surgery: No Endocrine Surgery: No Eye Surgery: No Genitourinary Surgery: Yes (LEFT TESTICLE REMOVED 1982 DUE CANCER) Gynecologic Surgery: No Oral Surgery: No Pacemaker: No Thoracic Surgery: No Other Surgery: Yes Social History Alcohol Use: Yes (OCCASIONAL ONCE A WEEK) Tobacco Use: Yes (CIGAR ONCE A MONTH) Substance Use: No Allergies-Medications (Allergen,Severity, Reaction): Coded Allergies: No Known Allergies (Verified , 02/13/14) Reported Meds & Prescriptions Reported Meds & Active Scripts Active Coreg (Carvedilol) 12.5 Mg Tab 12.5 Mg PO Q12HR 30 Days Brilinta (Ticagrelor) 90 Mg Tab 90 Mg PO BID 30 Days Aspirin Low Strength (Aspirin) 81 Mg Chew 81 Mg PO DAILY 30 Days Reported Ranitidine (Ranitidine HCl) 300 Mg Tab 300 Mg PO DAILY Losartan (Losartan Potassium) 50 Mg Tab 50 Mg PO DAILY Zolpidem (Zolpidem Tartrate) 10 Mg Tab 10 Mg PO HS PRN Tamsulosin (Tamsulosin HCl) 0.4 Mg Cap 0.4 Mg PO HS Uloric (Febuxostat) 40 Mg Tab Vitamin D-1000 (Cholecalciferol) 1,000 Unit Tab 5,000 Units PO DAILY Proventil Hfa 6.7 GM Inh (Albuterol Sulfate) 90 Mcg/Act Aer 2 Puff INH Q6H PRN Review of Systems Except as stated in HPI: all other systems reviewed are Neg HENT: Positive: Nosebleed (left sided naris), No: Sore Throat, Gingival Bleeding Respiratory: No: Shortness of Breath Gastrointestinal: No: Hematemesis, Hematochezia Hematologic/Lymphatic: Positive: Other (patient takes Brilinta and aspirin) Physical Exam Narrative GENERAL: Well-nourished, well-developed patient. SKIN: Focused skin assessment warm/dry. HEAD: Normocephalic/atraumatic. ENT: Mucosa pink and moist. No erythema or exudates. No uvular edema. No uvular , palatal, or tonsillar deviation. Airway patent. Nasal turbinates appear normal without nasal blood, purulent drainage or septal hematoma. CARDIOVASCULAR: Regular rate and rhythm without murmurs, gallops, or rubs. RESPIRATORY: Breath sounds equal bilaterally. No accessory muscle use. GASTROINTESTINAL: Abdomen soft, non-tender, nondistended. MUSCULOSKELETAL: No cyanosis, or edema. BACK: Nontender without obvious deformity. No CVA tenderness. Data Data Last Documented VS Vital Signs Date Time Temp Pulse Resp B/P (MAP) Pulse Ox O2 Delivery O2 Flow Rate FiO2 07/22/17 14:16 97.4 81 16 164/89 (114) 97 Orders Orders Silver Nitrate Applicators (Silver Nitra (07/22/17 14:45) MDM Medical Decision Making Medical Screen Exam Complete: Yes Emergency Medical Condition: Yes Differential Diagnosis Posterior versus anterior epistaxis versus dry mucous membranes Narrative Course 62-year-old male presents today with complaints of epistaxis on the left naris. The patient is on Brilinta and aspirin. I have cauterized the small bleeding vessels in the left anterior Kiesselbach plexus using silver nitrate. Hemostasis was obtained. The patient be discharged told to use Vaseline in the nares daily. He is instructed to start tomorrow. He is also instructed to avoid picking and heavy blowing. He will be discharged told to follow up with his primary care physician. 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 Starting tomorrow use Vaseline in the bilateral naris daily. Return if bleeding returns. Disposition: 01 DISCHARGE HOME Condition: Stable Jose Dial MD Jul 22, 2017 14:41
[2017-07-22] MEDS ORDERED: SILVER NITR/POTASSIUM NITRATE APPLICATORS TOPICAL ONE (14:45)
== END 2017-07-22 16:24 | disposition home or self-care (01) ==
LOC: PHED 14:09
DX: R04.0 Epistaxis (principal); I10 Essential (primary) hypertension; Z72.0 Tobacco use
CPT/HCPCS: 12011; 30901

== ENCOUNTER 2018-04-13 03:30 | Inpatient (IN) | payer OTHER ==
[~2018-04-13] VITALS: Ht 182.9 cm; Wt 99.9 kg
[2018-04-13] VITALS (9 sets, daily range): BP systolic 115–179; BP diastolic 71–90; PULSE 60–81; RESP 16–20; TEMP 96–97.5; O2SAT 16–97
[~2018-04-13 03:30] MED LIST changes: -ATOR40TA16 PO; -CHOL50006 PO; -LISI-515 PO; +LOSA50TA PO; +RANI300T PO; +ULOR40TA; -ULOR40TA PO; +VITA1000 PO; -ZOLP10TA3 OR; +ZOLP10TA3 PO
[2018-04-13] MEDS ORDERED: SODIUM CHLOR 0.9% 1000 ML INJ 1,000 ML IV SCH (03:49)
--- NOTE | 2018-04-13 03:56 | PD ---
HPI Chief Complaint: abdominal pain Time Seen by Provider: 03:49 Travel History International Travel<30 days: No Contact w/Intl Traveler<30days: No Traveled to known affect area: No History of Present Illness HPI 63-year-old male presents to the emergency department for complaint of severe periumbilical abdominal pain since midnight. Patient states he was well yesterday normal bowel movement no nausea or fever since about midnight he has had progressively worsening abdominal pain with abdominal distention and left lower quadrant tenderness. Patient denies similar previous history. Patient has had remote abdominal surgery in the past for lymph node removal and testicular cancer patient denies any chest pain or shortness of breath. No hematemesis no coffee-ground emesis no melena hematochezia. No dysuria frequency or urgency. Previous history of CAD [place] LAD stent hypertension dyslipidemia diet-controlled diabetes cutaneous psoriasis as well as alcohol use and tobacco use. Patient denies any urinary symptoms. Patient rates pain as 10/10 in intensity. Patient is unable to identify exacerbating or alleviating factors. PFSH Past Medical History Narrative Medical CAD [place] LAD stent hypertension dyslipidemia diet-controlled diabetes cutaneous psoriasis alcohol use and tobacco use; nursing notes reviewed Hx Anticoagulant Therapy: Yes Arthritis: No Asthma: Yes ( A CHILD) Autoimmune Disease: No Heart Rhythm Problems: No Cancer: Yes (TESTICULAR ) Cardiac Catheterization: Yes Cardiovascular Problems: Yes (Heart Attack) High Cholesterol: Yes Chemotherapy: Yes Chest Pain: No Congestive Heart Failure: No COPD: No Cerebrovascular Accident: No Coronary Artery Disease: Yes Diabetes: Yes Diminished Hearing: No Endocrine: Yes GERD: Yes Genitourinary: No Headaches: No Hepatitis: No Hiatal Hernia: No Hypertension: Yes Immune Disorder: No Musculoskeletal: No Neurologic: No Psychiatric: No Reproductive: No Respiratory: Yes Myocardial Infarction: Yes Seizures: No Sleep Apnea: No Ulcer: No Past Surgical History Abdominal Surgery: Yes (LEFT ABD QUAD LYMPH NODE REMOVED 1982) AICD: No Cardiac Surgery: No Ear Surgery: No Endocrine Surgery: No Eye Surgery: No Genitourinary Surgery: Yes (LEFT TESTICLE REMOVED 1982 DUE CANCER) Gynecologic Surgery: No Oral Surgery: No Pacemaker: No Thoracic Surgery: No Other Surgery: Yes Social History Alcohol Use: Yes (OCCASIONAL ONCE A WEEK) Tobacco Use: Yes (CIGAR ONCE A MONTH) Substance Use: No Allergies-Medications (Allergen,Severity, Reaction): Coded Allergies: No Known Allergies (Verified Adverse Reaction, Unknown, 04/13/18) Reported Meds & Prescriptions Reported Meds & Active Scripts Active Coreg (Carvedilol) 12.5 Mg Tab 12.5 Mg PO Q12HR 30 Days Brilinta (Ticagrelor) 90 Mg Tab 90 Mg PO BID 30 Days Aspirin Low Strength (Aspirin) 81 Mg Chew 81 Mg PO DAILY 30 Days Reported Ranitidine (Ranitidine HCl) 300 Mg Tab 300 Mg PO DAILY Losartan (Losartan Potassium) 50 Mg Tab 50 Mg PO DAILY Zolpidem (Zolpidem Tartrate) 10 Mg Tab 10 Mg PO HS PRN Tamsulosin (Tamsulosin HCl) 0.4 Mg Cap 0.4 Mg PO HS Uloric (Febuxostat) 40 Mg Tab Vitamin D-1000 (Cholecalciferol) 1,000 Unit Tab 5,000 Units PO DAILY Proventil Hfa 6.7 GM Inh (Albuterol Sulfate) 90 Mcg/Act Aer 2 Puff INH Q6H PRN Review of Systems Except as stated in HPI: all other systems reviewed are Neg Physical Exam Narrative GENERAL: Well-developed well-nourished ill-appearing male in no respiratory distress SKIN: Warm and dry. HEAD: Normocephalic. EYES: No scleral icterus. No injection or drainage. NECK: Supple, trachea midline. No JVD or lymphadenopathy. CARDIOVASCULAR: Regular rate and rhythm without murmurs, gallops, or rubs. RESPIRATORY: Breath sounds equal bilaterally. No accessory muscle use. GASTROINTESTINAL: Abdomen soft, diffusely tender primarily periumbilical and left lower quadrant without guarding or rebound noted distended. MUSCULOSKELETAL: No cyanosis, or edema. BACK: Nontender without obvious deformity. No CVA tenderness. Data Data Last Documented VS Vital Signs Date Time Temp Pulse Resp B/P (MAP) Pulse Ox O2 Delivery O2 Flow Rate FiO2 04/13/18 05:19 66 16 125/76 (92) 97 Room Air 04/13/18 03:32 97.5 Orders Orders Complete Blood Count With Diff (04/13/18 03:49) Comprehensive Metabolic Panel (04/13/18 03:49) Lipase (04/13/18 03:49) Urinalysis - C+S If Indicated (04/13/18 03:49) Ct Abd/Pel W Iv Contrast(Rout) (04/13/18 03:49) Iv Access Insert/Monitor (04/13/18 03:49) Ecg Monitoring (04/13/18 03:49) Oximetry (04/13/18 03:49) Sodium Chlor 0.9% 1000 Ml Inj (Ns 1000 M (04/13/18 03:49) Sodium Chloride 0.9% Flush (Ns Flush) (04/13/18 04:00) Chest, Single Ap (04/13/18 03:49) Metoclopramide Inj (Reglan Inj) (04/13/18 04:00) Morphine Inj (Morphine Inj) (04/13/18 04:00) Hydromorphone Pf Inj (Dilaudid Pf Inj) (04/13/18 04:15) Iohexol 350 Inj (Omnipaque 350 Inj) (04/13/18 04:49) Place In Observation (04/13/18 ) Vital Signs (Adult) Q4H (04/13/18 05:33) Activity Oob With Assistance (04/13/18 05:33) Agile Project Manager / Telemetry .CONTINUOUS (04/13/18 05:33) Intake + Output JOSIAS.QSHIFT (04/13/18 05:33) Diet Npo (04/13/18 Breakfast) Sodium Chlor 0.9% 1000 Ml Inj (Ns 1000 M (04/13/18 05:33) Sodium Chloride 0.9% Flush (Ns Flush) (04/13/18 05:45) Sodium Chloride 0.9% Flush (Ns Flush) (04/13/18 09:00) Ondansetron Inj (Zofran Inj) (04/13/18 05:45) Basic Metabolic Panel (Bmp) (04/14/18 06:00) Complete Blood Count With Diff (04/14/18 06:00) Naloxone Inj (Narcan Inj) (04/13/18 05:45) Admit Order (Ed Use Only) (04/13/18 ) Agile Project Manager / Telemetry JOSIAS.Q8H (04/13/18 05:34) Activity Oob With Assistance (04/13/18 05:34) Notify Dr: Other (04/13/18 05:34) Labs Laboratory Tests Test 04/13/18 03:59 White Blood Count 12.4 TH/MM3 Red Blood Count 5.56 MIL/MM3 Hemoglobin 17.0 GM/DL Hematocrit 50.5 % Mean Corpuscular Volume 90.9 FL Mean Corpuscular Hemoglobin 30.5 PG Mean Corpuscular Hemoglobin Concent 33.6 % Red Cell Distribution Width 13.6 % Platelet Count 221 TH/MM3 Mean Platelet Volume 9.1 FL Neutrophils (%) (Auto) 75.9 % Lymphocytes (%) (Auto) 15.8 % Monocytes (%) (Auto) 4.9 % Eosinophils (%) (Auto) 2.5 % Basophils (%) (Auto) 0.9 % Neutrophils # (Auto) 9.4 TH/MM3 Lymphocytes # (Auto) 2.0 TH/MM3 Monocytes # (Auto) 0.6 TH/MM3 Eosinophils # (Auto) 0.3 TH/MM3 Basophils # (Auto) 0.1 TH/MM3 CBC Comment DIFF FINAL Differential Comment Blood Urea Nitrogen 17 MG/DL Creatinine 1.40 MG/DL Random Glucose 138 MG/DL Total Protein 7.8 GM/DL Albumin 4.1 GM/DL Calcium Level 8.5 MG/DL Alkaline Phosphatase 110 U/L Aspartate Amino Transf (AST/SGOT) 14 U/L Alanine Aminotransferase (ALT/SGPT) 28 U/L Total Bilirubin 0.8 MG/DL Sodium Level 139 MEQ/L Potassium Level 4.0 MEQ/L Chloride Level 107 MEQ/L Carbon Dioxide Level 24.8 MEQ/L Anion Gap 7 MEQ/L Estimat Glomerular Filtration Rate 52 ML/MIN Lipase 242 U/L [facility] Medical Decision Making Medical Screen Exam Complete: Yes Emergency Medical Condition: Yes Medical Record Reviewed: Yes Interpretation(s) cxr: CBC & BMP Diagram 04/13/18 03:59 Total Protein 7.8, Albumin 4.1, Calcium Level 8.5, Alkaline Phosphatase 110, Aspartate Amino Transf (AST/SGOT) 14 L, Alanine Aminotransferase (ALT/SGPT) 28, Total Bilirubin 0.8 Vital Signs Date Time Temp Pulse Resp B/P (MAP) Pulse Ox O2 Delivery O2 Flow Rate FiO2 04/13/18 04:19 18 04/13/18 04:14 71 18 145/88 (107) 97 Room Air 04/13/18 03:32 97.5 81 20 179/89 (119) 95 lipase: 242 Differential Diagnosis Abdominal pain bowel obstruction diverticulitis pancreatitis perforated viscus AAA Narrative Course Patient placed on loading machine tool setter with continuous pulse oximetry IV access obtained specimens collected and sent for resulting patient ordered Reglan 10 mg IV morphine sulfate 4 mg IV maintenance IV fluids 1 25 cc an hour kept n.p.o. and CT abdomen and pelvis with IV contrast ordered mildly elevated wcc; renal insufficiency cr 1.4 gfr 52 @ 4:[address]; pain 2/10 At 5 AM patient informed of CT results with family at bedside per reading radiologist findings consistent with ileus no specific transition point for partial or complete small bowel obstruction mild dilatation of the mid to distal small bowel. Pain 0/10. Call placed to medicine service for admission. Physician Communication Physician Communication call placed to [facility] service for admission Diagnosis Primary Impression: Ileus, unspecified Additional Impression: Abdominal pain Qualified Codes: R10.33 - Periumbilical pain Admitting Information Admitting Physician Requests: Shawna Parsons MD Apr 13, 2018 03:56
[2018-04-13] MEDS ORDERED: MORPHINE SULFATE 4 MG/ML INJ IV PUSH ONE (04:00)
[2018-04-13] MEDS ORDERED: SODIUM CHLORIDE 0.9% FLUSH 10 ML FLUSH IV FLUSH PRN ×2 (04:00→05:45)
[2018-04-13] MEDS ORDERED: METOCLOPRAMIDE HCL 10 MG/2 ML VIAL IV PUSH ONE (04:00)
[2018-04-13 04:07] LABS: AUTOMATED NEUTROPHIL # 9.4 TH/MM3 (1.8-7.7); BASOPHIL # 0.1 TH/MM3 (0-0.2); BASOPHIL % 0.9 % (0.0-2.0); EOSINOPHIL # 0.3 TH/MM3 (0-0.4); EOSINOPHIL % 2.5 % (0.0-4.0); HEMATOCRIT 50.5 % (39.0-51.0); LYMPH % 15.8 % (9.0-44.0); MEAN CELL VOLUME 90.9 FL (80.0-100.0); MEAN CORPUSCULAR HEMOGLOBIN 30.5 PG (27.0-34.0); MEAN CORPUSCULAR HGB CONC 33.6 % (32.0-36.0); MEAN PLATELET VOLUME 9.1 FL (7.0-11.0); MONO % 4.9 % (0.0-8.0); MONOCYTE # 0.6 TH/MM3 (0-0.9); NEUT % 75.9 % (16.0-70.0); PLATELET COUNT 221 TH/MM3 (150-450); RED BLOOD COUNT 5.56 MIL/MM3 (4.50-5.90); RED CELL DISTRIBUTION WIDTH 13.6 % (11.6-17.2); WHITE BLOOD COUNT 12.4 TH/MM3 (4.0-11.0)
[2018-04-13 04:14] LABS: CHLORIDE 107 MEQ/L (98-107); SODIUM (NA) 139 MEQ/L (136-145)
[2018-04-13] MEDS ORDERED: HYDROmorphone HCL PF 2 MG/ML VIAL IV PUSH ONE (04:15)
[2018-04-13 04:17] LABS: CALCIUM 8.5 MG/DL (8.5-10.1)
[2018-04-13 04:18] LABS: ALBUMIN 4.1 GM/DL (3.4-5.0); BICARBONATE 24.8 MEQ/L (21.0-32.0); BLOOD UREA NITROGEN 17 MG/DL (7-18); GLUCOSE,RANDOM 138 MG/DL (74-106)
[2018-04-13 04:21] LABS: ALT (GPT) 28 U/L (12-78); AST (GOT) 14 U/L (15-37); GLOMERULAR FILTRATION RATE 52 ML/MIN (>89)
[2018-04-13 04:22] LABS: TOTAL BILIRUBIN ADULT 0.8 MG/DL (0.2-1.0); TOTAL PROTEIN 7.8 GM/DL (6.4-8.2)
[2018-04-13 04:24] LABS: ALKALINE PHOSPHATASE 110 U/L (45-117)
--- NOTE | 2018-04-13 04:36 | RADRPT ---
EXAM DATE: 04/13/2018 4:06 AM EDT AGE/SEX: 63 years / Male INDICATIONS: Evaluate for free air. CLINICAL DATA: This is the patient's initial encounter. Patient reports that signs and symptoms have been present for 1 day and indicates a pain score of 7/10. MEDICAL/SURGICAL HISTORY: Hypertension. Coronary artery disease. . Cardiac cath. COMPARISON: [facility], CHEST SINGLE AP, 05/25/2017. . FINDINGS: Single AP view of the chest. The lungs are clear. Cardiomediastinal silhouette within nor mal limits. No evidence of pleural effusion or pneumothorax. No evidence of free air under the diaph ragm. CONCLUSION: No acute cardiopulmonary disease identified. Electronically signed by: Randall Rhodes MD 04/13/2018 4:35 AM EDT
[2018-04-13] MEDS ORDERED: IOHEXOL 350 MG/ML 10 ML VIAL (for RAD DIAG) IVCONTRAST ONE (04:49)
--- NOTE | 2018-04-13 05:01 | RADRPT ---
EXAM DATE: 04/13/2018 4:50 AM EDT AGE/SEX: 63 years / Male INDICATIONS: Abdominal pain. CLINICAL DATA: This is the patient's initial encounter. Patient reports that signs and symptoms have been present for 1 day and indicates a pain score of 6/10. MEDICAL/SURGICAL HISTORY: Cardiovascular disease. Carcinoma, testicular. Hypertension. Myoca rdial infarction, asthma . Left testicle removed ORAL CONTRAST: No oral contrast ingested. RADIATION DOSE: 15.83 CTDI (mGy) COMPARISON: No prior exams available for comparison. TECHNIQUE: Multiple contiguous axial images were obtained through the abdomen and pelvis following b olus infusion of 96 ml Omnipaque 350 (iohexol) nonionic water-soluble contrast as a single exam dos e. No oral contrast ingested. Using automated exposure control and adjustment of the mA and/or kV ac cording to patient size, the radiation dose was kept as low as reasonably achievable to obtain optima l diagnostic quality images. FINDINGS: Lower Lungs: The visualized lower lungs are clear. Liver: The liver has a homogeneous density without space-occupying lesion. There is no dilation of th e biliary tree. Spleen: Homogeneous density without enlargement. Pancreas: Unremarkable without mass or calcification. Kidneys: 3.3 cm cyst extending posteriorly off of the midpole of the right kidney. 3.7 cm cyst exten ding inferiorly off of the lower pole of the right kidney. 2.5 cm cyst anteriorly at the lower pole o f the right kidney. No evidence of hydronephrosis. Adrenal Glands: Unremarkable. Aorta: The aorta and proximal iliac vessels are grossly unremarkable without aneurysmal dilation. Bowel/Mesentery: Mild dilatation and air-fluid levels in multiple loops of mid to distal small bowel . No discrete transition point. Appendix within normal limits. No free air or free fluid. Abdominal Wall: Postsurgical findings in the anterior abdominal wall. Retroperitoneum: No evidence of adenopathy in the retrocrural, para-aortic, or deep pelvic regions. Bladder: Contours are smooth. Reproductive Organs: No abnormal masses or calcifications seen. Inguinal: The inguinal region is unremarkable without evidence of adenopathy. Bony Structures: Unremarkable. CONCLUSION: 1. Postsurgical findings anterior abdominal wall. 2. Mild dilatation of multiple loops of mid to distal small bowel. No transition point. Most likely represent ileus. 3. Multiple right renal cysts. Electronically signed by: Randall Rhodes MD 04/13/2018 5:00 AM EDT
[2018-04-13] MEDS: SODIUM CHLOR 0.9% 1000 ML INJ 1,000 ML IV SCH ×2 (05:41→15:33)
[2018-04-13] MEDS ORDERED: NALOXONE HCL 0.4 MG/ML AMP IV PUSH PRN (05:45)
[2018-04-13] MEDS ORDERED: ONDANSETRON ODT 4 MG TAB PO PRN (05:45)
[2018-04-13] MEDS ORDERED: MORPHINE SULFATE 4 MG/ML INJ IV PUSH PRN (05:45)
[2018-04-13] MEDS ORDERED: DEXI60CA3 (07:03)
[2018-04-13] MEDS ORDERED: CLOP75TA PO (07:03)
[2018-04-13 07:51] LABS: BILIRUBIN, URINE NEG (NEG); BLOOD, URINE NEG (NEG); GLUCOSE,URINE NEG (NEG); KETONE, URINE NEG (NEG); NITRITE,URINE NEG (NEG); PH, URINE 6.5 (5.0-8.5); URINE COLOR YELLOW (YELLW/STRAW); URINE LEUKOCYTE ESTERASE NEG (NEG)
[2018-04-13 08:08] LABS: MUCUS URINE RARE /lpf (OCC); SQUAMOUS EPITHELIAL CELL URINE 0-2 /hpf (0-5)
--- NOTE | 2018-04-13 08:34 | HHI.HP ---
[facility] Dilan Morris III, MD Admission Diagnosis Ileus/abdominal pain Diagnoses: (1) Ileus, unspecified (2) Abdominal pain Chief Complaint: Abdominal pain Travel History International Travel<30 Days: No Contact w/Intl Traveler <30 Da: No Traveled to Known Affected Are: No History of Present Illness This is a pleasant 63-year-old male patient with a new medical history of CAD, history of [place] and cardiac stent placement, hypertension, and hyperlipidemia who presented to the ED with complaints of severe periumbilical abdominal pain. Patient states that yesterday he was in his normal state of health, with good appetite, eating well with no abdominal pain, nausea or vomiting. He went to bed at around midnight he was awoken by severe abdominal pain that was located in his. Umbilical area, was rated a 10 out of 10 at its worst on pain scale, patient does admit to associated nausea and vomiting x3 times, states that the pain worsened with movement, patient states that IV narcotics helped the pain. Patient states he had his last bowel movement yesterday, at this time he denies any gas or bowel movement this morning. Patient does state that he has had roughly 5 episodes similar to his complaints but has not had any complaints of the last 8 years. Patient denies any recent illness including fever, chills, cough, shortness of breath, headache, diarrhea or dysuria. Patient denies any bloody or black stools. Patient sees Dr. Fallon, gastroenterology, was last seen 2 years ago and had an upper endoscopy and colonoscopy which did show some precancerous polyps at the time. Patient does follow with Dr. Gordon, cardiology for management of his CAD. Last seen 3 months ago with no changes to his medicines. It should be noted that patient does have a remote abdominal history in the past for lymph node removal secondary to testicular cancer. Review of Systems Constitutional: COMPLAINS OF: Fatigue, DENIES: Fever, Chills Endocrine: DENIES: Polydipsia Eyes: DENIES: Diplopia Ears, nose, mouth, throat: DENIES: Vertigo Respiratory: DENIES: Cough, Sputum production, Shortness of breath Cardiovascular: DENIES: Chest pain, Palpitations Gastrointestinal: COMPLAINS OF: Abdominal pain, Nausea, Vomiting, DENIES: Black stools, Bloody stools, Constipation, Diarrhea Musculoskeletal: DENIES: Joint pain Hematologic/lymphatic: DENIES: Bruising Immunologic/allergic: DENIES: Eczema Neurologic: DENIES: Abnormal gait Psychiatric: COMPLAINS OF: Anxiety Except as stated in HPI: all other systems reviewed are Neg Past Family Social History Past Medical History Hypertension History of CAD with [place] and cardiac stent placement Dyslipidemia Psoriasis Asthma as a child History of testicular cancer GERD Past Surgical History Left hernia repair Left testicle removal in 1982 secondary to cancer Left abdominal lymph node removal in 1982 secondary to testicular cancer Deviated septum repair Reported Medications Active Coreg (Carvedilol) 12.5 Mg Tab 12.5 Mg PO Q12HR 30 Days Aspirin Low Strength (Aspirin) 81 Mg Chew 81 Mg PO DAILY 30 Days Reported Amlodipine (Amlodipine Besylate) 10 Mg Tab 10 Mg PO DAILY D [id number] (Cholecalciferol) 10,000 Unit Cap 50,000 WEEKLY Uloric (Febuxostat) 80 Mg Tab DAILY Allergy (Loratadine) 10 Mg Tab Trintellix (Vortioxetine) 5 Mg Tab 5 Mg PO DAILY Clopidogrel (Clopidogrel Bisulfate) 75 Mg Tab 75 Mg PO DAILY Dexilant (Dexlansoprazole) 60 Mg Cap.drSuryabp DAILY Ranitidine (Ranitidine HCl) 300 Mg Tab 300 Mg PO DAILY Losartan (Losartan Potassium) 50 Mg Tab 50 Mg PO DAILY Zolpidem (Zolpidem Tartrate) 10 Mg Tab 10 Mg PO HS PRN Tamsulosin (Tamsulosin HCl) 0.4 Mg Cap 0.4 Mg PO HS Vitamin D-1000 (Cholecalciferol) 1,000 Unit Tab 5,000 Units PO DAILY Allergies: Coded Allergies: No Known Allergies (Verified Allergy, Unknown, 04/13/18) Active Ordered Medications Current Medications Medications (Trade) Dose Ordered Sig/Hubert Route Start Time Stop Time Status Last Admin Sodium Chloride 1,000 ml @ 100 mls/hr Q10H IV 04/13/18 05:33 04/13/18 05:41 (NS Flush) 2 ml UNSCH PRN IV FLUSH 04/13/18 05:45 (NS Flush) 2 ml BID IV FLUSH 04/13/18 09:00 (Zofran Odt) 4 mg Q6H PRN PO 04/13/18 05:45 (Narcan Inj) 0.4 mg UNSCH PRN IV PUSH 04/13/18 05:45 (Morphine Inj) 2 mg Q3H PRN IV PUSH 04/13/18 05:45 04/13/18 06:24 (Proair Hfa Inh) 2 puff Q6H PRN INH 04/13/18 08:45 (Aspirin Chew) 81 mg DAILY PO 04/13/18 10:00 (Coreg) 12.5 mg Q12HR PO 04/13/18 10:00 (Vitamin D3) 5,000 units DAILY PO 04/13/18 10:00 (Plavix) 75 mg DAILY PO 04/13/18 10:00 (Flomax) 0.4 mg HS PO 04/13/18 21:00 (Brilinta) 90 mg BID PO 04/13/18 10:00 Family History Father has a history of lung cancer. Mother has a history of diabetes and hypertension. Social History Patient admits to smoking 1 cigar a week for many years. Admits to occasional alcohol use roughly once a week. Denies any illicit drug use. Physical Exam Vital Signs Vital Signs Date Time Temp Pulse Resp B/P (MAP) Pulse Ox O2 Delivery O2 Flow Rate FiO2 04/13/18 07:44 96.0 69 18 138/77 (97) 95 04/13/18 06:44 04/13/18 05:19 66 16 125/76 (92) 97 Room Air 04/13/18 04:49 72 16 144/90 (108) 94 Room Air 04/13/18 04:49 16 04/13/18 04:19 18 04/13/18 04:14 71 18 145/88 (107) 97 Room Air 04/13/18 03:32 97.5 81 20 179/89 (119) 95 Physical Exam GENERAL: Well-developed, well-nourished patient in NAD. SKIN: Warm and dry. Psoriasis. HEAD: Normocephalic. Atraumatic. EYES: Pupils equal and round. No scleral icterus. No injection or drainage. ENT: No nasal bleeding or discharge. Mucous membranes pink and moist. NECK: Supple. Trachea midline. CARDIOVASCULAR: Regular rate and rhythm. S1, S2 noted. 2/6 distant murmur. RESPIRATORY: No accessory muscle use. Clear to auscultation. Breath sounds equal bilaterally. GASTROINTESTINAL: Abdomen soft, non-tender. Round. Normoactive bowel sounds x4. MUSCULOSKELETAL: No obvious deformities. Extremities without clubbing, cyanosis , or edema. NEUROLOGICAL: Awake and alert. No obvious cranial nerve deficits. Motor grossly within normal limits. 5/5 muscle strength in bilateral upper and lower extremities. Normal speech. PSYCHIATRIC: Appropriate mood and affect; insight and judgment normal. Laboratory Laboratory Tests Test 04/13/18 03:59 04/13/18 07:15 White Blood Count 12.4 Red Blood Count 5.56 Hemoglobin 17.0 Hematocrit 50.5 Mean Corpuscular Volume 90.9 Mean Corpuscular Hemoglobin 30.5 Mean Corpuscular Hemoglobin Concent 33.6 Red Cell Distribution Width 13.6 Platelet Count 221 Mean Platelet Volume 9.1 Neutrophils (%) (Auto) 75.9 Lymphocytes (%) (Auto) 15.8 Monocytes (%) (Auto) 4.9 Eosinophils (%) (Auto) 2.5 Basophils (%) (Auto) 0.9 Neutrophils # (Auto) 9.4 Lymphocytes # (Auto) 2.0 Monocytes # (Auto) 0.6 Eosinophils # (Auto) 0.3 Basophils # (Auto) 0.1 CBC Comment DIFF FINAL Differential Comment Blood Urea Nitrogen 17 Creatinine 1.40 Random Glucose 138 Total Protein 7.8 Albumin 4.1 Calcium Level 8.5 Alkaline Phosphatase 110 Aspartate Amino Transf (AST/SGOT) 14 Alanine Aminotransferase (ALT/SGPT) 28 Total Bilirubin 0.8 Sodium Level 139 Potassium Level 4.0 Chloride Level 107 Carbon Dioxide Level 24.8 Anion Gap 7 Estimat Glomerular Filtration Rate 52 Lipase 242 Urine Collection Type VOIDED Urine Color YELLOW Urine Turbidity CLEAR Urine pH 6.5 Urine Specific Jackson 1.010 Urine Protein TRACE Urine Glucose (UA) NEG Urine Ketones NEG Urine Occult Blood NEG Urine Nitrite NEG Urine Bilirubin NEG Urine Urobilinogen 0.2 Urine Leukocyte Esterase NEG Urine Squamous Epithelial Cells 0-2 Urine Mucus RARE Microscopic Urinalysis Comment CULT NOT INDICATED Result Diagram: 04/13/1835804/13/18358 Imaging Last Impressions Chest X-Ray 04/13/18348 Signed Impressions: CONCLUSION: No acute cardiopulmonary disease identified. Abdomen/Pelvis CT 04/13/18348 Signed Impressions: CONCLUSION: 1. Postsurgical findings anterior abdominal wall. 2. Mild dilatation of multiple loops of mid to distal small bowel. No transiti on point. Most likely represent ileus. 3. Multiple right renal cysts. Septic Shock Reassessment Septic shock perfusion: reassessment completed Caprini VTE Risk Assessment Caprini VTE Risk Assessment: Mod/High Risk (score >= 2) Caprini Risk Assessment Model Point Value = 1 Point Value = 2 Point Value = 3 Point Value = 5 Age 41-60 Minor surgery BMI > 25 kg/m2 Swollen legs Varicose veins or History of unexplained or recurrent spontaneous Oral contraceptives or hormone replacement Sepsis (< 1 month) Serious lung disease, including pneumonia (< 1 month) Abnormal pulmonary function Acute myocardial infarction Congestive heart failure (< 1 month) History of inflammatory bowel disease Medical patient at bed rest Age 61-74 Arthroscopic surgery Major open surgery (> 45 min) Laparoscopic surgery (> 45 min) Malignancy Confined to bed (> 72 hours) Immobilizing plaster cast Central venous access Age >= 75 History of VTE Family history of VTE Factor V Leiden Prothrombin [id number] Lupus anticoagulant Anticardiolipin antibodies Elevated serum homocysteine Heparin-induced thrombocytopenia Other congenital or acquired thrombophilia Stroke (< 1 month) Elective arthroplasty Hip, pelvis, or leg fracture Acute spinal cord injury (< 1 month) Prophylaxis Regimen Total Risk Factor Score Risk Level Prophylaxis Regimen 0-1 Low Early ambulation 2 Moderate Order ONE of the following: *Sequential Compression Device (SCD) *Heparin 5000 units SQ BID 3-4 Higher Order ONE of the following medications: *Heparin 5000 units SQ TID *Enoxaparin/Lovenox 40 mg SQ daily (WT < 150 kg, CrCl > 30 mL/min) *Enoxaparin/Lovenox 30 mg SQ daily (WT < 150 kg, CrCl > 10-29 mL/min) *Enoxaparin/Lovenox 30 mg SQ BID (WT < 150 kg, CrCl > 30 mL/min) AND/OR *Sequential Compression Device (SCD) 5 or more Highest Order ONE of the following medications: *Heparin 5000 units SQ TID (Preferred with Epidurals) *Enoxaparin/Lovenox 40 mg SQ daily (WT < 150 kg, CrCl > 30 mL/min) *Enoxaparin/Lovenox 30 mg SQ daily (WT < 150 kg, CrCl > 10-29 mL/min) *Enoxaparin/Lovenox 30 mg SQ BID (WT < 150 kg, CrCl > 30 mL/min) AND *Sequential Compression Device (SCD) Assessment and Plan Assessment and Plan This is a pleasant 63-year-old male patient with a new medical history of CAD, history of [place] and cardiac stent placement, hypertension, and hyperlipidemia who presented to the ED with complaints of severe periumbilical abdominal pain. Ileus with associated abdominal pain, nausea and vomiting History of prior abdominal surgery, hernia repair and abdominal lymphadenectomy with history of ileua - Abdominal/pelvis CT showing dilated loops of small bowel, no transition point. Ileus present. - Abdominal pain has improved, will continue morphine IV as needed per pain scale. - Ensure hydration, continue IV fluids. - Attempt clear liquid diet. Assess tolerance. - Repeat abdominal x-ray in am. Follow resolution. - Supportive care. Acute kidney injury suspect secondary to dehydration - Creatinine 1.4 on presentation. Continue IV fluids. Awaiting labs this morning. UA negative. CAD history with cardiac stents - Will continue home Plavix and aspirin. DVT prophylaxis: SCDs. Problem Qualifiers (1) Abdominal pain: Qualified Codes: R10.33 - Periumbilical pain Colette Negron Apr 13, 2018 08:34
[2018-04-13] MEDS ORDERED: ALBUTEROL SULFATE 90 MCG/ACT HFA 8 GM INHALER INH PRN (08:45)
[2018-04-13] MEDS: SODIUM CHLORIDE 0.9% FLUSH 10 ML FLUSH IV FLUSH SCH ×2 (09:00→20:15)
[2018-04-13] MEDS ORDERED: VORT1TAB PO (09:35)
[2018-04-13] MEDS ORDERED: LORA-520 (09:38)
[2018-04-13] MEDS ORDERED: ULOR80TA2 (09:40)
[2018-04-13] MEDS ORDERED: D 10CAP (09:42)
[2018-04-13] MEDS ORDERED: AMLO10TA2 PO (09:43)
[2018-04-13] MEDS: TICAGRELOR 90 MG TAB PO SCH ×2 (10:00→20:15)
[2018-04-13] MEDS ORDERED: ASPIRIN 81 MG CHEW TAB PO SCH (10:00)
[2018-04-13] MEDS ORDERED: CHOLECALCIFEROL (VIT D3) 1000 UNIT TAB PO SCH (10:00)
[2018-04-13] MEDS ORDERED: CLOPIDOGREL 75 MG TAB PO SCH (10:00)
[2018-04-13] MEDS: CARVEDILOL 12.5 MG TAB PO SCH ×2 (10:30→20:15)
[2018-04-13] MEDS ORDERED: TAMSULOSIN HCL 0.4 MG CAP PO SCH (21:00)
[2018-04-14 00:28] VITALS: BP 123/83; PULSE 65; RESP 20; TEMP 97.2; O2SAT 96
[2018-04-14] MEDS: SODIUM CHLOR 0.9% 1000 ML INJ 1,000 ML IV SCH (01:42)
--- NOTE | 2018-04-14 05:17 | RADRPT ---
EXAM DATE: 04/14/2018 5:06 AM EDT AGE/SEX: 63 years / Male INDICATIONS: Evalaute for ileus CLINICAL DATA: This is the patient's subsequent encounter. Patient reports that signs and symptoms h ave been present for 2 days and indicates a pain score of 2/10. MEDICAL/SURGICAL HISTORY: . Cardiovascular disease. Carcinoma, testicular. Hypertension. Myocar dial infarction. Asthma. . Left testicle removed. COMPARISON: No prior exams available for comparison. FINDINGS: 2 AP supine views of the abdomen. Scattered gas and stool in the colon. Surgical clips in the midabd omen and pelvis. No abnormal abdominal calcifications. Degenerative findings of the lumbar spine. CONCLUSION: Bowel gas pattern within normal limits. Electronically signed by: Randall Rhodes MD 04/14/2018 5:15 AM EDT
[2018-04-14 05:35] LABS: BASOPHIL # 0.1 TH/MM3 (0-0.2); BASOPHIL % 0.8 % (0.0-2.0); EOSINOPHIL # 0.3 TH/MM3 (0-0.4); EOSINOPHIL % 4.6 % (0.0-4.0); HEMATOCRIT 44.1 % (39.0-51.0); HEMOGLOBIN 14.7 GM/DL (13.0-17.0); LYMPH % 31.9 % (9.0-44.0); LYMPHOCYTE # 2.3 TH/MM3 (1.0-4.8); MEAN CELL VOLUME 92.4 FL (80.0-100.0); MEAN CORPUSCULAR HEMOGLOBIN 30.9 PG (27.0-34.0); MEAN CORPUSCULAR HGB CONC 33.4 % (32.0-36.0); MEAN PLATELET VOLUME 9.4 FL (7.0-11.0); MONO % 5.9 % (0.0-8.0); MONOCYTE # 0.4 TH/MM3 (0-0.9); NEUT % 56.8 % (16.0-70.0); PLATELET COUNT 161 TH/MM3 (150-450); RED BLOOD COUNT 4.77 MIL/MM3 (4.50-5.90); RED CELL DISTRIBUTION WIDTH 13.3 % (11.6-17.2); WHITE BLOOD COUNT 7.1 TH/MM3 (4.0-11.0)
[2018-04-14 05:52] LABS: CALCIUM 7.9 MG/DL (8.5-10.1)
[2018-04-14 05:55] LABS: CREATININE 1.1 MG/DL (0.60-1.30)
[2018-04-14 07:27] VITALS: BP 121/74; PULSE 59; RESP 20; TEMP 96.6; O2SAT 97
--- NOTE | 2018-04-14 07:41 | HHI.PR ---
Subjective Remarks Follow-up ileus. Patient seen and examined, lying in bed comfortably no apparent distress. No further abdominal pain, nausea or vomiting. Has been tolerating p.o. intake. Vital signs stable overnight. Afebrile. Passing gas. Positive bowel movement. Repeat abdominal x-ray normal today. Acute kidney injury resolved today with IV fluids. CBC unremarkable. Will discharge home today for patient to follow-up with PCP and implementation coordinator. Objective Vitals Vital Signs Date Time Temp Pulse Resp B/P (MAP) Pulse Ox O2 Delivery O2 Flow Rate FiO2 04/14/18 07:27 96.6 59 20 121/74 (90) 97 04/14/18 00:28 97.2 65 20 123/83 (96) 96 04/13/18 20:38 97.4 61 20 115/81 (92) 97 04/13/18 15:48 97.0 60 18 122/71 (88) 96 04/13/18 11:49 97.3 69 18 119/74 (89) 96 04/13/18 08:30 69 04/13/18 07:44 96.0 69 18 138/77 (97) 95 I/O 04/13/18 04/13/18 04/13/18 04/14/18 04/14/18 04/14/18 07:00 15:00 23:00 07:00 15:00 23:00 Intake Total 148 ml 960 ml 1400 ml Output Total 100 ml Balance 48 ml 960 ml 1400 ml Intake Oral 960 ml IV Total 148 ml 1400 ml Emesis 100 ml # Voids 3 # Bowel Movements 3 Result Diagram: 04/14/18 0505 04/14/18 0505 Imaging Last Impressions Abdomen X-Ray 04/14/18 06 Signed Impressions: CONCLUSION: Bowel gas pattern within normal limits. Chest X-Ray 04/13/18348 Signed Impressions: CONCLUSION: No acute cardiopulmonary disease identified. Abdomen/Pelvis CT 04/13/18348 Signed Impressions: CONCLUSION: 1. Postsurgical findings anterior abdominal wall. 2. Mild dilatation of multiple loops of mid to distal small bowel. No transiti on point. Most likely represent ileus. 3. Multiple right renal cysts. Objective Remarks GENERAL: Well-developed, well-nourished patient in NAD. SKIN: Warm and dry. No rash. HEAD: Normocephalic. Atraumatic. EYES: Pupils equal and round. No scleral icterus. No injection or drainage. ENT: No nasal bleeding or discharge. Mucous membranes pink and moist. NECK: Supple. Trachea midline. CARDIOVASCULAR: Regular rate and rhythm. S1, S2 noted. No murmur appreciated. RESPIRATORY: No accessory muscle use. Clear to auscultation. Breath sounds equal bilaterally. GASTROINTESTINAL: Abdomen soft, non-tender, nondistended. Normoactive bowel sounds x4. MUSCULOSKELETAL: No obvious deformities. Extremities without clubbing, cyanosis , or edema. NEUROLOGICAL: Awake and alert. No obvious cranial nerve deficits. Motor grossly within normal limits. 5/5 muscle strength in bilateral upper and lower extremities. Normal speech. PSYCHIATRIC: Appropriate mood and affect; insight and judgment normal. A/P Problem List: (1) Ileus, unspecified ICD Code: K56.7 - Ileus, unspecified Status: Acute (2) Abdominal pain ICD Code: R10.9 - Unspecified abdominal pain Status: Acute Assessment and Plan This is a pleasant 63-year-old male patient with a new medical history of CAD, history of AK and cardiac stent placement, hypertension, and hyperlipidemia who presented to the ED with complaints of severe periumbilical abdominal pain. Ileus with associated abdominal pain, nausea and vomiting History of prior abdominal surgery, hernia repair and abdominal lymphadenectomy with history of ileua - Abdominal/pelvis CT showing dilated loops of small bowel, no transition point. Ileus present. - Abdominal pain has improved, no nausea or vomiting. Patient tolerating p.o. intake. IV fluids discontinued. - Repeat abdominal x-ray this morning showing normal bowel pattern. - All symptoms have resolved. Acute kidney injury suspect secondary to dehydration - Creatinine 1.4 on presentation. Has improved, creatinine today 1.1. Tolerating p.o. intake. Adequately hydrated. CAD history with cardiac stents - Will continue home Plavix and aspirin. Discharge patient to home. Condition on discharge: Improved. Heart healthy regular Diet as tolerated. Ad Ally activity. Rx written: Please see discharge instructions. Follow-up with primary care physician and implementation coordinator. Problem Qualifiers (1) Abdominal pain: Qualified Codes: R10.33 - Periumbilical pain Colette Negron Apr 14, 2018 07:41
--- NOTE | 2018-04-14 07:42 | HHI.DCPOC ---
Discharge Care Plan Diagnosis: (1) Ileus, unspecified (2) Abdominal pain (3) Hypokalemia Goals to Promote Your Health * To prevent worsening of your condition and complications * To maintain your health at the optimal level Directions to Meet Your Goals Take your medications as prescribed Follow your dietary instruction Follow activity as directed Keep your appointments as scheduled Take your immunizations and boosters as scheduled If your symptoms worsen call your PCP, if no PCP go to Urgent Care Center or Emergency Room Smoking is Dangerous to Your Health. Avoid second hand smoke Call the 24-hour hour crisis hotline for domestic abuse at Colette Negron Apr 14, 2018 07:42
== END 2018-04-14 09:27 | disposition home or self-care (01) | DRG 389 ==
LOC: PHED 03:30 → PHEDA 05:35 → PH3A 06:40 → OBSVTOIN 12:35
PROVIDERS: ADMIT Hospitalist; ATTEND Hospitalist
DX: K56.7 Ileus, unspecified (principal); N17.9 Acute kidney failure, unspecified; I10 Essential (primary) hypertension; E11.9 Type 2 diabetes mellitus without complications; I25.10 Atherosclerotic heart disease of native coronary artery without angina pectoris; E78.00 Pure hypercholesterolemia, unspecified; F17.290 Nicotine dependence, other tobacco product, uncomplicated; E87.6 Hypokalemia; E86.0 Dehydration; E78.5 Hyperlipidemia, unspecified; K21.9 Gastro-esophageal reflux disease without esophagitis; L40.9 Psoriasis, unspecified; I25.2 Old myocardial infarction; Z85.47 Personal history of malignant neoplasm of testis; Z95.5 Presence of coronary angioplasty implant and graft; Z80.1 Family history of malignant neoplasm of trachea, bronchus and lung; Z83.3 Family history of diabetes mellitus; Z82.49 Family history of ischemic heart disease and other diseases of the circulatory system; Z79.02 Long term (current) use of antithrombotics/antiplatelets; Z79.82 Long term (current) use of aspirin
CPT/HCPCS: 71045; 74018; 74177; 80048; 80053; 81001; 83690; 85025; J1170; J2270; J2765; J7030; Q9967